=== PATIENT | male | born 1970 | race Caucasian/White ===

== ENCOUNTER 2016-08-28 11:35 | Inpatient (IN) | payer OTHER ==
[~2016-08-28] VITALS: Ht 172.7 cm; Wt 86.7 kg
[~2016-08-28 11:35] MED LIST: HYDR25TA4 PO; LISI10TA PO; MILK THISTLE 1000 MG PO; POTASSIUM GLUC PO
[2016-08-28] MEDS ORDERED: SODIUM CHLORIDE 0.9% 1000ML 1,000 ML IV ONE (12:10)
[2016-08-28] MEDS ORDERED: SODIUM CHLORIDE 0.9% 1000ML 1,000 ML IV STA (12:10)
[2016-08-28] MEDS ORDERED: OPTIRAY 320 IV PRN (12:30)
[2016-08-28 12:35] LABS: ISTAT IONIZED CALCIUM 1.19 mmol/l (1.12-1.32)
[2016-08-28 12:38] LABS: BASO % 0.2 %; BASO ABS # 0.02 K/uL (0-0.2); COMPLETE YES; EOS % 0.8 %; HEMATOCRIT 47.4 % (42-52); IG% 0.3 %; LYMPH % 20.9 %; LYMPH ABS # 2.58 K/uL (1.2-3.4); MEAN CORPUSCULAR HEMOGLOBIN 35.3 pg (25-34); MEAN CORPUSCULAR HGB CONC 35.7 g/dl (32-36); MEAN PLATELET VOLUME 8.6 fL (7.4-10.4); MONO % 8.7 %; NEUT % 69.1 %; PLATELET COUNT 195 K/uL (130-400); RED BLOOD COUNT 4.79 M/uL (4.7-6.1); WHITE BLOOD COUNT 12.36 K/uL (4.8-10.8)
--- NOTE | 2016-08-28 12:51 | DIAGNOSTIC IMAGING REPORT ---
ABDOMEN AND PELVIS CT WITH IV CONTRAST CT DOSE: 960.50 mGycm HISTORY: Hernia. Pain. eval for hernia TECHNIQUE: Multiaxial CT images of the abdomen and pelvis were performed following the use of intravenous contrast. COMPARISON STUDY: None. FINDINGS: Lung bases are clear. Liver spleen and pancreas are unremarkable. Kidneys negative for hydronephrosis. There is a 3.5 cm mid pole right renal cyst. Perinephric spaces are intact. The adrenal glands are within normal limits. There are findings of scattered colonic diverticulosis. The appendix is normal. There is no evidence for acute diverticulitis. There is a fat-containing right inguinal hernia. Mild infiltrative changes of the associated end of surrounding fat. This raises the possibility of a component of mild fat and associated necrosis. There is no evidence of bowel containment. Appears be a small right-sided hydrocele. The anterior abdominal wall appears to be intact. IMPRESSION: 1. Fat-containing right inguinal hernia with a small associated focus of fat necrosis and/or surrounding inflammatory change. 2. Small right associated scrotal hydrocele. 3. No evidence for bowel containment. 4. Scattered colonic diverticulosis with no evidence for diverticulitis. 5. 3.5 cm right renal cyst. 6. Normal appendix Electronically signed by: Tacho Ordoñez M.D. 08/28/2016 12:50 PM Dictated Date/Time: 08/28/2016 12:43 PM
[2016-08-28 12:53] LABS: BUN/CREATININE RATIO 13.5 (10-20); CALCIUM 9.4 mg/dl (8.5-10.1); CREATININE 1.1 mg/dl (0.60-1.40); POTASSIUM 4.1 mmol/L (3.5-5.1)
--- NOTE | 2016-08-28 13:28 | EMERGENCY ROOM VISIT NOTE ---
History Report prepared by Gómezibangelita: Todd Carbajal Under the Supervision of: Dr. David Hess M.D. First contact with patient: 12:01 Chief Complaint: GROIN PAIN Stated Complaint: HERNIA/BELLY OR GROIN History of Present Illness The patient is a 45 year old male who presents to the Emergency Room with complaints of constant right groin pain starting 2 days ago. He has worsening pain with squatting and kneeling. He denies any worsening pain with coughing. He applied ice without relief. He denies any recent injuries, straining, or lifting. He denies any headache, chest pain, back pain, burning with urination, blood in urine, numbness, weakness, or any other complaints. Source of History: patient Onset: 2 days ago Position: other (right groin) Timing: constant Modifying Factors (Worsening): other (squatting and kneeling) Modifying Factors (Relieving): ice (without relief) Associated Symptoms: No back pain, No chest pain, No headache, No numbness, No weakness Review of Systems See HPI for pertinent positives & negatives. A total of 10 systems reviewed and were otherwise negative. Past Medical & Surgical Medical Problems: (1) NUGENT (dyspnea on exertion) (2) Hypertension (3) Rotator cuff injury Old medical records were reviewed. Nurse's notes were reviewed and I agree with. Family History Diabetes mellitus FHx: cancer Hypertension Social History Smoking Status: Current Every Day Smoker Marital Status: single Housing Status: lives alone Occupation Status: employed Current/Historical Medications Scheduled Hydrochlorothiazide (Hctz), 25 MG PO DAILY Lisinopril (Prinivil), 10 MG PO DAILY Allergies Coded Allergies: No Known Allergies (Unverified , 08/28/16) Physical Exam Vital Signs Date Time Temp Pulse Resp B/P Pulse Ox O2 Delivery O2 Flow Rate FiO2 08/28/16 17:33 63 18 146/91 97 Room Air 08/28/16 16:04 72 18 145/97 97 Room Air 08/28/16 13:36 78 20 147/93 100 08/28/16 11:51 37.4 88 16 158/104 99 Room Air Physical Exam General: Non-ill appearing, middle aged male, in no acute distress. HEENT: Normal cephalic atraumatic. Pupils are equal round and reactive to light. Extraocular movements are intact. Oropharynx is pink with moist mucous membranes. No swelling of the mouth lips or tongue. Neck: Supple with a midline trachea. No meningeal signs or stiffness, no JVD or bruits. No Stridor. Chest: Clear to auscultation bilaterally. No wheezes or rhonchi. No increased work of breathing. Heart: regular rate and rhythm. Abdomen: Soft nontender, nondistended without rebound guarding or rigidity. : Mild to moderate swelling in the right inguinal area extending into the groin, mild tenderness, no warmth or redness. Extremities: No cyanosis clubbing or edema. No calf tenderness or assymetry Spine/Back. Non tender to palpation. No CVA tenderness Skin: Good turgor without rashes. Neurologic exam: Cranial nerves two through 12 are intact. Motor and sensation are intact and symmetrical throughout. Medical Decision & Procedures ER Provider Diagnostic Interpretation: CT results as stated below per my review and radiologist interpretation: ABDOMEN AND PELVIS CT WITH IV CONTRAST CT DOSE: 960.50 mGycm HISTORY: Hernia. Pain. eval for hernia TECHNIQUE: Multiaxial CT images of the abdomen and pelvis were performed following the use of intravenous contrast. COMPARISON STUDY: None. FINDINGS: Lung bases are clear. Liver spleen and pancreas are unremarkable. Kidneys negative for hydronephrosis. There is a 3.5 cm mid pole right renal cyst. Perinephric spaces are intact. The adrenal glands are within normal limits. There are findings of scattered colonic diverticulosis. The appendix is normal. There is no evidence for acute diverticulitis. There is a fat-containing right inguinal hernia. Mild infiltrative changes of the associated end of surrounding fat. This raises the possibility of a component of mild fat and associated necrosis. There is no evidence of bowel containment. Appears be a small right-sided hydrocele. The anterior abdominal wall appears to be intact. IMPRESSION: 1. Fat-containing right inguinal hernia with a small associated focus of fat necrosis and/or surrounding inflammatory change. 2. Small right associated scrotal hydrocele. 3. No evidence for bowel containment. 4. Scattered colonic diverticulosis with no evidence for diverticulitis. 5. 3.5 cm right renal cyst. 6. Normal appendix Electronically signed by: Tacho Ordoñez M.D. 08/28/2016 12:50 PM Dictated Date/Time: 08/28/2016 12:43 PM Laboratory Results 08/28/16 12:15 Red Blood Count 4.79, Mean Corpuscular Volume 99.0, Mean Corpuscular Hemoglobin 35.3, Mean Corpuscular Hemoglobin Concent 35.7, Mean Platelet Volume 8.6, Neutrophils (%) (Auto) 69.1, Lymphocytes (%) (Auto) 20.9, Monocytes (%) (Auto) 8.7, Eosinophils (%) (Auto) 0.8, Basophils (%) (Auto) 0.2, Neutrophils # (Auto) 8.55, Lymphocytes # (Auto) 2.58, Monocytes # (Auto) 1.07, Eosinophils # (Auto) 0.10, Basophils # (Auto) 0.02 08/28/16 12:15 Test 08/28/16 12:15 08/28/16 12:24 08/28/16 13:30 White Blood Count 12.36 K/uL (4.8-10.8) Red Blood Count 4.79 M/uL (4.7-6.1) Hemoglobin 16.9 g/dL (14.0-18.0) Hematocrit 47.4 % (42-52) Mean Corpuscular Volume 99.0 fL (80-100) Mean Corpuscular Hemoglobin 35.3 pg (25-34) Mean Corpuscular Hemoglobin Concent 35.7 g/dl (32-36) Platelet Count 195 K/uL (130-400) Mean Platelet Volume 8.6 fL (7.4-10.4) Neutrophils (%) (Auto) 69.1 % Lymphocytes (%) (Auto) 20.9 % Monocytes (%) (Auto) 8.7 % Eosinophils (%) (Auto) 0.8 % Basophils (%) (Auto) 0.2 % Neutrophils # (Auto) 8.55 K/uL (1.4-6.5) Lymphocytes # (Auto) 2.58 K/uL (1.2-3.4) Monocytes # (Auto) 1.07 K/uL (0.11-0.59) Eosinophils # (Auto) 0.10 K/uL (0-0.5) Basophils # (Auto) 0.02 K/uL (0-0.2) RDW Standard Deviation 44.6 fL (36.4-46.3) RDW Coefficient of Variation 12.4 % (11.5-14.5) Immature Granulocyte % (Auto) 0.3 % Immature Granulocyte # (Auto) 0.04 K/uL (0.00-0.02) Est Creatinine Clear Calc Drug Dose 90.5 ml/min Estimated GFR () 92.2 Estimated GFR (Non- 79.5 BUN/Creatinine Ratio 13.5 (10-20) Calcium Level 9.4 mg/dl (8.5-10.1) Total Bilirubin 1.0 mg/dl (0.2-1) Direct Bilirubin 0.1 mg/dl (0-0.2) Aspartate Amino Transf (AST/SGOT) 19 U/L (15-37) Alanine Aminotransferase (ALT/SGPT) 37 U/L (12-78) Alkaline Phosphatase 99 U/L (45-117) Total Creatine Kinase 153 U/L (39-308) Creatine Kinase MB 1.9 ng/ml (0.5-3.6) Creatine Kinase MB Ratio 1.2 (0-3.0) Troponin I < 0.015 ng/ml (0-0.045) Total Protein 8.0 gm/dl (6.4-8.2) Albumin 4.2 gm/dl (3.4-5.0) Lipase 140 U/L (73-393) Bedside Hemoglobin 17.0 g/dl (14.0-18.0) Bedside Hematocrit 50 % (42-52) Bedside Sodium 141 mEq/L (135-144) Bedside Potassium 4.2 mEq/L (3.3-5.0) Bedside Chloride 105 mEq/L (101-112) Bedside Total CO2 23 mEq/l (24-31) Anion Gap 18.0 mmol/L (16-25) Bedside Blood Urea Nitrogen 15 mg/dl (7-18) Bedside Creatinine 1.0 mg/dl (0.6-1.3) Bedside Glucose (other) 94 mg/dl (70-99) Bedside Ionized Calcium (Harry) 1.19 mmol/l (1.12-1.32) Urine Color YELLOW Urine Appearance CLEAR (CLEAR) Urine pH 5.0 (4.5-7.5) Urine Specific [place] > 1.045 (1.000-1.030) Urine Protein NEG (NEG) Urine Glucose (UA) NEG (NEG) Urine Ketones NEG (NEG) Urine Occult Blood NEG (NEG) Urine Nitrite NEG (NEG) Urine Bilirubin NEG (NEG) Urine Urobilinogen NEG (NEG) Urine Leukocyte Esterase NEG (NEG) Laboratory studies as stated above per my review. Medications Administered Medications (Trade) Dose Ordered Sig/Osvaldo Route Start Time Stop Time Status Last Admin Dose Admin Sodium Chloride 1,000 ml @ 999 mls/hr Q1H1M STAT IV 08/28/16 12:10 08/28/16 13:10 DC 08/28/16 12:20 999 MLS/HR Sodium Chloride (Nss 1000ml) 1,000 ml @ 200 mls/hr Q5H ONCE IV 08/28/16 12:10 08/28/16 17:09 DC 08/28/16 13:34 200 MLS/HR ED Course 1201: Past medical records reviewed. The patient was evaluated in room C08, and a complete history and physical examination were performed. 1210: Sodium Chloride 1000 ml @ 200 mls/hr IV, Sodium Chloride 1000 ml @ 999 mls /hr IV 1313: I discussed the patient's case with Dr. Esqueda, general surgeon with [facility]. 1321: I reevaluated the patient who is resting comfortably. 1408: Dr. Esqueda is currently evaluating the patient in the Emergency Room. 1434: Dr. Esqueda consulted with Dr. Caraballo about further evaluating the patient. Upon reevaluation, the patient is doing well. I discussed the results and treatment plan with the patient. He verbalized agreement of the treatment plan. The patient will be evaluated for further management. Medical Decision Differential diagnosis includes but is not limited to hernia, infection, obstruction, UTI, kidney stone, testicular problem. This patient comes in as described above. He was placed in room C8. He's having right groin pain and swelling. On exam, he does have a moderate size mass in that area is not red or warm is mildly tender. He is afebrile. IV access established blood work was obtained. His white count was mildly elevated. He has no significant electrolyte or metabolic abnormalities. CAT scan shows a fat-containing right hernia with some fat necrosis. I did consult surgery to see the patient in the emergency department for recommendations on further treatment and management. The patient was seen by Dr. Esqueda who feels he does have a fat-containing hernia. He further question the patient and the patient has had some shortness of breath with exertion occasional chest pain over the last year and he felt that he needed medical evaluation for surgery. The patient denies to me that he's been having acute problems lately with this. Dr. Bhatia did see the patient and is going to admit the patient for cardiac workup prior to his hernia surgery. Consults Time Called: 1310 Consulting Physician: Dr. Esqueda, general surgeon with [facility] Returned Call: [phone] I discussed the patient's case with Dr. Esqueda, general surgeon with [facility]. Impression Primary Impression: Right inguinal hernia Scribe Attestation The scribe's documentation has been prepared under my direction and personally reviewed by me in its entirety. I confirm that the note above accurately reflects all work, treatment, procedures, and medical decision making performed by me. Departure Information Dispostion Being Evaluated By Hospitalist Referrals No Doctor, Assigned (PCP) Patient Instructions [facility]
[2016-08-28 14:12] LABS: URINE APPEARANCE CLEAR (CLEAR); URINE BILIRUBIN NEG (NEG); URINE COLOR YELLOW; URINE NITRITE NEG (NEG); URINE SPECIFIC GRAVITY > 1.045 (1.000-1.030); UROBILINOGEN NEG (NEG)
[2016-08-28 14:13] LABS: MANUAL MICROSCOPIC REQUIRED? NO; REVIEW REQ? NO
[2016-08-28] MEDS ORDERED: ZOLPIDEM TARTRATE 5 MG TAB PO PRN (14:45)
--- NOTE | 2016-08-28 15:10 | DIAGNOSTIC IMAGING REPORT ---
CHEST ONE VIEW PORTABLE CLINICAL HISTORY: PRE-OP COMPARISON STUDY: Preoperative evaluation FINDINGS: The bones soft tissues and hemidiaphragms are normal. The cardiomediastinal silhouette is normal. The lungs are clear. The pulmonary vasculature is normal. Several old right-sided rib fractures. IMPRESSION: Negative chest. Electronically signed by: Tacho Ordoñez M.D. 08/28/2016 3:09 PM Dictated Date/Time: 08/28/2016 3:08 PM
--- NOTE | 2016-08-28 15:29 | SURGICAL CONSULTATION ---
DATE OF CONSULTATION: 08/28/2016 HISTORY OF PRESENT ILLNESS: I have been asked by Dr. Hess to see this 45-year-old male who presented to the Emergency Room with a complaint of pain on the right side of the scrotum. He stated that the pain began 2 days ago. He has never had pain there before. He has never known that he had a hernia on that side before. The pain is localized to the scrotum. There is no generalized abdominal pain. He has not had any nausea or vomiting. There has been no fever or chills. He thinks that he may have had a change in his bowel habits over the last 2 days, but prior to that they were formed and without constipation or diarrhea. He denies melena and hematochezia. He has no dysuria or hematuria. He has never had surgery in that lower portion of his abdomen in the past. In obtaining review of systems he does describe stress induced pressure-like chest pain in the center of his chest. He states that that has been occurring intermittently over the last year. He thinks that he had a stress test about 2-3 years ago what he said was normal, but he has not had a cardiac workup since the onset of these symptoms. He also has shortness of breath. He describes at times having shortness of breath just with speaking, but that seems to have abated. He does have shortness of breath with walking upstairs. PAST MEDICAL HISTORY: For hypertension and hypercholesterolemia, although he has not started a medicine for the hypercholesterolemia. PAST SURGICAL HISTORY: For rotator cuff surgery on the right. MEDICATIONS: Lisinopril and hydrochlorothiazide. ALLERGIES: None. SOCIAL HISTORY: He has smoked for 20 years, but he is presently down to less than 4 cigarettes a day. REVIEW OF SYSTEMS: As per HPI, otherwise negative. PHYSICAL EXAMINATION: VITAL SIGNS: Blood pressure 147/93, heart rate 78, respirations 20, temperature 37.4, pulse oximetry is 100% on room air. HEENT: Reveals sclerae to be anicteric. Mucous membranes are moist. NECK: Supple, with no adenopathy. BACK: Has no spinal or CVA tenderness. LUNGS: Clear. HEART: Regular. ABDOMEN: Has normoactive bowel sounds, is soft and nondistended. Examination of the inguinal area reveals a fullness in the upper portion of the scrotum extending up over the anterior surface of the pubic tubercle consistent with a right inguinal hernia. There was a mild tenderness of the testicle as well, but there was no mass. LABORATORY DATA: WBC 12.36, H\T\H is 16.9 and 47.4 with a platelet count of 195,000. Sodium 141, potassium 4.2, chloride 105, CO2 of 23, BUN 15, creatinine 1.0, glucose 94, total bilirubin 1.0, AST 19, ALT 37, alkaline phosphatase 99, lipase 140. CT scan of the abdomen and pelvis states fat containing right inguinal hernia with small associated focus of fat necrosis and/or surrounding inflammatory change and a small right associated hydrocele, but no evidence for bowel containment. He had a 3.5 cm renal cyst. ASSESSMENT AND PLAN: This patient has a right inguinal hernia containing fat but no bowel with no evidence of bowel obstruction. There is some fat necrosis. I feel that this hernia will need to be repaired; however, considering his chest pain and shortness of breath history and the fact that he was a smoker, I think that that needs to be investigated prior to repairing the hernia. There is no emergent need for hernia repair at the present time. I explained that to the patient. He is going to be admitted to the medicine service as I discussed with Dr. Caraballo. We will continue to follow him and schedule the hernia at an appropriate time. Thank you for allowing me to see this patient and participate in his care.
[2016-08-28 15:39] LABS: CKMB/CK RATIO 1.2 (0-3.0)
--- NOTE | 2016-08-28 17:36 | History and Physical ---
History & Physical Date & Time of Service: Aug 28, 2016 at 17:28 Chief Complaint: Hernia/Belly Or Groin Primary Care Physician: No Doctor, Assigned History of Present Illness Source: patient The patient is a 45-year-old male presents emergency department complaining of constant right groin pain, worse with squatting and kneeling, that began 2 days prior to arrival. He denies any the usual causative or associated factors. He also reports dyspnea on exertion that was initially assessed a few years ago, but has progressed since that time. He did have negative stress test 2 years ago. Past Medical/Surgical History Medical Problems: (1) Hypertension Status: Chronic Family History Diabetes mellitus FHx: cancer Hypertension Social History Smoking Status: Current Every Day Smoker Smokeless Tobacco Use: No Alcohol Use: none Marital Status: single Occupational Status: employed Immunizations History of Influenza Vaccine: No History of Tetanus Vaccine?: Yes Tetanus Immunization Date: Jul 29, 2005 History of Pneumococcal: No History of Hepatitis B Vaccine: Unknown Multi-Drug Resistant Organisms History of MDRO: No Allergies Coded Allergies: No Known Allergies (Unverified , 08/28/16) Home Medications Scheduled Hydrochlorothiazide (Hctz), 25 MG PO DAILY Lisinopril (Prinivil), 10 MG PO DAILY Review of Systems The patient denies chest pain, palpitations, cough, lower extremity swelling, vision change, hearing change, sore throat, fevers, chills, sweats, weight change, fatigue, nausea, vomiting, blood in urine or stool, dysuria, urinary frequency or urgency, lightheadedness, dizziness, headache, memory loss, rash, abnormal bruising or bleeding, imbalance, focal or generalized weakness, numbness or tingling in arms or legs, arthralgias or myalgias, back or neck pain , night sweats, or allergy symptoms. The review of systems is otherwise negative other than for that already noted above, and at least 10 systems have been reviewed. Physical Exam Vital Signs Date Time Temp Pulse Resp B/P Pulse Ox O2 Delivery O2 Flow Rate FiO2 08/28/16 16:04 72 18 145/97 97 Room Air 08/28/16 13:36 78 20 147/93 100 08/28/16 11:51 37.4 88 16 158/104 99 Room Air The patient is awake, well-developed and adequately nourished, alert and oriented 3, normocephalic and atraumatic, lying in bed and in no acute distress. HEENT--PERRL, EOMI, mucous membranes and oropharynx dry. Neck--supple, no JVD or bruits, thyroid normal, trachea midline, no adenopathy. Heart--normal S1 and S2, no extra beats, no murmurs, rubs or gallops. Lungs--clear bilaterally with good air movement, no respiratory distress, no accessory muscle use. Abdomen--normal bowel sounds and soft, nondistended, tender right inguinal hernia, no organomegaly. Extremities--no cyanosis, clubbing or edema. There are good distal pulses b/l. Dermatologic--normal skin turgor, normal color, warm and dry, no abnormal lymph nodes, no rash. Neurologic--cranial nerves II through XII grossly intact, motor and sensory examination normal. Rheumatologic--normal range of motion, nontender, muscles and joints. Psychiatric--normal affect. Diagnostics Laboratory Results Results Past 24 Hours Test 08/28/16 12:15 08/28/16 12:24 08/28/16 13:30 Range/Units White Blood Count 12.36 4.8-10.8 K/uL Red Blood Count 4.79 4.7-6.1 M/uL Hemoglobin 16.9 14.0-18.0 g/dL Hematocrit 47.4 42-52 % Mean Corpuscular Volume 99.0 80-100 fL Mean Corpuscular Hemoglobin 35.3 25-34 pg Mean Corpuscular Hemoglobin Concent 35.7 32-36 g/dl Platelet Count 195 130-400 K/uL Mean Platelet Volume 8.6 7.4-10.4 fL Neutrophils (%) (Auto) 69.1 % Lymphocytes (%) (Auto) 20.9 % Monocytes (%) (Auto) 8.7 % Eosinophils (%) (Auto) 0.8 % Basophils (%) (Auto) 0.2 % Neutrophils # (Auto) 8.55 1.4-6.5 K/uL Lymphocytes # (Auto) 2.58 1.2-3.4 K/uL Monocytes # (Auto) 1.07 0.11-0.59 K/uL Eosinophils # (Auto) 0.10 0-0.5 K/uL Basophils # (Auto) 0.02 0-0.2 K/uL RDW Standard Deviation 44.6 36.4-46.3 fL RDW Coefficient of Variation 12.4 11.5-14.5 % Immature Granulocyte % (Auto) 0.3 % Immature Granulocyte # (Auto) 0.04 0.00-0.02 K/uL Sodium Level 140 136-145 mmol/L Potassium Level 4.1 3.5-5.1 mmol/L Chloride Level 107 98-107 mmol/L Carbon Dioxide Level 25 21-32 mmol/L Anion Gap 8.0 18.0 16-25 mmol/L Blood Urea Nitrogen 15 7-18 mg/dl Creatinine 1.10 0.60-1.40 mg/dl Est Creatinine Clear Calc Drug Dose 90.5 ml/min Estimated GFR () 92.2 Estimated GFR (Non- 79.5 BUN/Creatinine Ratio 13.5 10-20 Random Glucose 88 70-99 mg/dl Calcium Level 9.4 8.5-10.1 mg/dl Total Bilirubin 1.0 0.2-1 mg/dl Direct Bilirubin 0.1 0-0.2 mg/dl Aspartate Amino Transf (AST/SGOT) 19 15-37 U/L Alanine Aminotransferase (ALT/SGPT) 37 12-78 U/L Alkaline Phosphatase 99 45-117 U/L Total Creatine Kinase 153 39-308 U/L Creatine Kinase MB 1.9 0.5-3.6 ng/ml Creatine Kinase MB Ratio 1.2 0-3.0 Troponin I < 0.015 0-0.045 ng/ml Total Protein 8.0 6.4-8.2 gm/dl Albumin 4.2 3.4-5.0 gm/dl Lipase 140 73-393 U/L Bedside Hemoglobin 17.0 14.0-18.0 g/dl Bedside Hematocrit 50 42-52 % Bedside Sodium 141 135-144 mEq/L Bedside Potassium 4.2 3.3-5.0 mEq/L Bedside Chloride 105 101-112 mEq/L Bedside Total CO2 23 24-31 mEq/l Bedside Blood Urea Nitrogen 15 7-18 mg/dl Bedside Creatinine 1.0 0.6-1.3 mg/dl Bedside Glucose (other) 94 70-99 mg/dl Bedside Ionized Calcium (Harry) 1.19 1.12-1.32 mmol/l Urine Color YELLOW Urine Appearance CLEAR CLEAR Urine pH 5.0 4.5-7.5 Urine Specific [place] > 1.045 1.000-1.030 Urine Protein NEG NEG Urine Glucose (UA) NEG NEG Urine Ketones NEG NEG Urine Occult Blood NEG NEG Urine Nitrite NEG NEG Urine Bilirubin NEG NEG Urine Urobilinogen NEG NEG Urine Leukocyte Esterase NEG NEG Microbiology Results 08/28/16 Urine Culture, Received Pending Diagnostic Radiology Patient Name: ASHER LI JR Unit Number: [id number] Dictated: 08/28/161242 Transcribed: 08/28/161242 MS Printed Date/Time: [~ rep prt dt]/[~ rep prt tm] [~ rep ct labl] - [~ rep ct ivnm] [facility] Radiology Department [place] [id number] Dictated: 08/28/161242 Transcribed: 08/28/161242 MS Printed Date/Time: [~ rep prt dt]/[~ rep prt tm] [~ rep ct labl] - [~ rep ct ivnm] ABDOMEN AND PELVIS CT WITH IV CONTRAST CT DOSE: 960.50 mGycm HISTORY: Hernia. Pain. eval for hernia TECHNIQUE: Multiaxial CT images of the abdomen and pelvis were performed following the use of intravenous contrast. COMPARISON STUDY: None. FINDINGS: Lung bases are clear. Liver spleen and pancreas are unremarkable. Kidneys negative for hydronephrosis. There is a 3.5 cm mid pole right renal cyst. Perinephric spaces are intact. The adrenal glands are within normal limits. There are findings of scattered colonic diverticulosis. The appendix is normal. There is no evidence for acute diverticulitis. There is a fat-containing right inguinal hernia. Mild infiltrative changes of the associated end of surrounding fat. This raises the possibility of a component of mild fat and associated necrosis. There is no evidence of bowel containment. Appears be a small right-sided hydrocele. The anterior abdominal wall appears to be intact. IMPRESSION: 1. Fat-containing right inguinal hernia with a small associated focus of fat necrosis and/or surrounding inflammatory change. 2. Small right associated scrotal hydrocele. 3. No evidence for bowel containment. 4. Scattered colonic diverticulosis with no evidence for diverticulitis. 5. 3.5 cm right renal cyst. 6. Normal appendix Electronically signed by: Tacho Ordoñez M.D. 08/28/2016 12:50 PM Dictated Date/Time: 08/28/2016 12:43 PM The status of this report is Signed. Draft = Not yet reviewed or approved by Radiologist. Signed = Reviewed and approved by Radiologist. <AttendingPhy></AttendingPhy> <FamilyPhy>No Doctor, Assigned</FamilyPhy> < PrimaryPhy>No Doctor, Assigned</PrimaryPhy> <UnitNumber>[id number]</UnitNumber> <VisitNumber>[id number]</VisitNumber> <PatientName>EDEL LINANY STEARNS JR</ PatientName> <DateOfBirth>1970</DateOfBirth> <Location>[facility]</Location> < ServiceDate>08/28/16</ServiceDate> <MNE>ESINDI</MNE> <OrderingPhy>David Hess M.D.</OrderingPhy> <OrderingPhyMNE>f rep ord dr young</OrderingPhyMNE> < DictatingPhyMNE>f rep dict dr young</DictatingPhyMNE> <CCListMNE>f rep ct mne</ CCListMNE> <AdmittingPhyMNE>f pt admit dr young</AdmittingPhyMNE> <AttendingPhyMNE >f pt attend dr young</AttendingPhyMNE> <ConsultingPhyMNE>f pt consult dr young</ConsultingPhyMNE> <FamilyPhyMNE>f pt fam dr young</FamilyPhyMNE> <OtherPhyMNE>f pt other dr young</OtherPhyMNE> < PrimaryPhyMNE>f pt prim care dr young</PrimaryPhyMNE> <ReferringPhyMNE>f pt referring dr young</ReferringPhyMNE> Patient Name: EDEL LINANY STEARNS JR Unit Number: [id number] Dictated: 08/28/16 1508 Transcribed: 08/28/16 1508 MS Printed Date/Time: [~ rep prt dt]/[~ rep prt tm] [~ rep ct labl] - [~ rep ct ivnm] [facility] [place] [address] Dictated: 08/28/16 1508 Transcribed: 08/28/16 1508 MS Printed Date/Time: [~ rep prt dt]/[~ rep prt tm] [~ rep ct labl] - [~ rep ct ivnm] CHEST ONE VIEW PORTABLE CLINICAL HISTORY: PRE-OP COMPARISON STUDY: Preoperative evaluation FINDINGS: The bones soft tissues and hemidiaphragms are normal. The cardiomediastinal silhouette is normal. The lungs are clear. The pulmonary vasculature is normal. Several old right-sided rib fractures. IMPRESSION: Negative chest. Electronically signed by: Tacho Ordoñez M.D. 08/28/2016 3:09 PM Dictated Date/Time: 08/28/2016 3:08 PM The status of this report is Signed. Draft = Not yet reviewed or approved by Radiologist. Signed = Reviewed and approved by Radiologist. <AttendingPhy></AttendingPhy> <FamilyPhy>No Doctor, Assigned</FamilyPhy> < PrimaryPhy>No Doctor, Assigned</PrimaryPhy> <UnitNumber>[id number]</UnitNumber> <VisitNumber>[id number]</VisitNumber> <PatientName>ASHER LI JR</ PatientName> <DateOfBirth>1970</DateOfBirth> <Location>[facility]</Location> < ServiceDate>08/28/16</ServiceDate> <MNE>ESINDI</MNE> <OrderingPhy>Tc Caraballo M.D.</OrderingPhy> <OrderingPhyMNE>f rep ord dr young</OrderingPhyMNE> < DictatingPhyMNE>f rep dict dr young</DictatingPhyMNE> <CCListMNE>f rep ct mne</ CCListMNE> <AdmittingPhyMNE>f pt admit dr young</AdmittingPhyMNE> <AttendingPhyMNE >f pt attend dr young</AttendingPhyMNE> <ConsultingPhyMNE>f pt consult dr young</ConsultingPhyMNE> <FamilyPhyMNE>f pt fam dr young</FamilyPhyMNE> <OtherPhyMNE>f pt other dr young</OtherPhyMNE> < PrimaryPhyMNE>f pt prim care dr young</PrimaryPhyMNE> <ReferringPhyMNE>f pt referring dr young</ReferringPhyMNE> Impression Assessment and Plan Dyspnea on exertion--patient has a normal chest x-ray, EKG pending. He'll be admitted to telemetry unit, for serial cardiac enzymes, cardiac rhythm monitoring and a 2-D echocardiogram with Dopplers. Because of his symptomatology, we will consult cardiology for stress testing prior to surgery. He does have history of tobacco use, and will have available DuoNeb's use every 2 hours when necessary. He masses an undiagnosed asthmatic condition. Right inguinal hernia--is been assessed by Dr. Tacho Esqueda from surgery, who will be consulted see the patient. The patient will need a cardiac workup prior to being acceptable for surgery. Hypertension--hold lisinopril 10 mg by mouth daily and HCTZ 25 mg by mouth daily. Tobacco use disorder--discussed the need for quitting. He reports he has been cutting down. Level of Care Telemetry Advanced Directives Existing Advance Directive: No Existing Living Will: No Existing Power of Handle Attacher: No Resuscitation Status FULL RESUSCITATION VTE Prophylaxis VTE Risk Assessment Done? Y/N: Yes Risk Level: Moderate Given or contraindicated: SCD's Social Service Consult None Apply
[2016-08-28 17:53] VITALS: BP 144/89; PULSE 68; TEMP 36.9; O2SAT 99; Ht 172.7 cm; Wt 86.7 kg
[2016-08-28] MEDS: NSS + 20MEQ KCL 1000ML 1,000 ML IV SCH (18:45)
[2016-08-28 19:27] VITALS: BP 168/95; PULSE 78; TEMP 36.8; O2SAT 98
[2016-08-28 20:00] VITALS: O2SAT 98
[2016-08-28 23:11] VITALS: BP 143/90; PULSE 61; TEMP 36.8; O2SAT 96
[2016-08-29] VITALS (9 sets, daily range): BP systolic 128–169; BP diastolic 78–101; PULSE 57–69; TEMP 36.5–37.1; O2SAT 96–98
[2016-08-29] MEDS: NSS + 20MEQ KCL 1000ML 1,000 ML IV SCH ×3 (04:14→23:48)
[2016-08-29] MEDS: ACETAMINOPHEN 325 MG TAB PO PRN ×2 (04:19→23:22)
--- NOTE | 2016-08-29 07:57 | Hospitalist Progress Note ---
Hospitalist Progress Note Date of Service Aug 29, 2016. (Maddy Morley PA-C) Subjective Pt evaluation today including: conversation w/ patient, physical exam, chart review, lab review, review of studies, review of inpatient medication list Pain: Groin pain PO Intake: NPO Voiding: no voiding problems The patient was seen and examined this morning. Pt reports his breathing is normal today. He does not feel short of breath at rest or with exertion. He smokes ~ 2 cigarettes a day and this is cut down from 8 cigarettes about two years ago. He has never had formal PFTs done, [facility] [place] [facility]. In regards to groin pain, pt reports it is still present, and that the swelling in suprapubic region on the right side has remained the same. He denies nausea or vomiting. His scrotum is not swollen. Constitutional: No chills, No fever, No sweats Eyes: No diplopia ENT: No nasal symptoms, No sore throat Respiratory: No cough, No dyspnea on exertion, No shortness of breath, No wheezing Cardiovascular: No chest pain Abdomen: No constipation, No diarrhea, No nausea, No pain, No vomiting Musculoskeletal: No joint pain Male : No dysuria Skin: No itch, No rash (Maddy Morley PA-C) Objective Vital Signs Date Time Temp Pulse Resp B/P Pulse Ox O2 Delivery O2 Flow Rate FiO2 08/29/16 04:00 98 Room Air 08/29/16 03:01 36.5 57 19 131/78 98 Room Air 08/29/16 00:00 96 Room Air 08/28/16 23:11 36.8 61 18 143/90 96 Room Air 08/28/16 20:00 98 Room Air 08/28/16 19:27 36.8 78 16 168/95 98 Room Air 08/28/16 17:53 36.9 68 13 144/89 99 Room Air 08/28/16 17:33 63 18 146/91 97 Room Air 08/28/16 16:04 72 18 145/97 97 Room Air 08/28/16 13:36 78 20 147/93 100 08/28/16 11:51 37.4 88 16 158/104 99 Room Air (Maddy Morley PA-C) Physical Exam General Appearance: WD/WN, no apparent distress Eyes: PERRL, EOMI ENT: hearing grossly normal, pharynx normal Neck: supple, no JVD Respiratory/Chest: chest non-tender, lungs clear, normal breath sounds, no respiratory distress, no accessory muscle use Cardiovascular: regular rate, rhythm, no murmur Abdomen: normal bowel sounds, non tender, soft Extremities: non-tender, no pedal edema, no calf tenderness Neurologic/Psychiatric: alert, oriented x 3 Notes: Male : Right sided inguinal hernia, + edema right sided suprapubic region. No scrotal swelling. (Maddy Morley PA-C) Laboratory Results Last 24 Hours Test 08/28/16 12:15 08/28/16 12:24 08/28/16 13:30 White Blood Count 12.36 K/uL Red Blood Count 4.79 M/uL Hemoglobin 16.9 g/dL Hematocrit 47.4 % Mean Corpuscular Volume 99.0 fL Mean Corpuscular Hemoglobin 35.3 pg Mean Corpuscular Hemoglobin Concent 35.7 g/dl Platelet Count 195 K/uL Mean Platelet Volume 8.6 fL Neutrophils (%) (Auto) 69.1 % Lymphocytes (%) (Auto) 20.9 % Monocytes (%) (Auto) 8.7 % Eosinophils (%) (Auto) 0.8 % Basophils (%) (Auto) 0.2 % Neutrophils # (Auto) 8.55 K/uL Lymphocytes # (Auto) 2.58 K/uL Monocytes # (Auto) 1.07 K/uL Eosinophils # (Auto) 0.10 K/uL Basophils # (Auto) 0.02 K/uL RDW Standard Deviation 44.6 fL RDW Coefficient of Variation 12.4 % Immature Granulocyte % (Auto) 0.3 % Immature Granulocyte # (Auto) 0.04 K/uL Sodium Level 140 mmol/L Potassium Level 4.1 mmol/L Chloride Level 107 mmol/L Carbon Dioxide Level 25 mmol/L Anion Gap 8.0 mmol/L 18.0 mmol/L Blood Urea Nitrogen 15 mg/dl Creatinine 1.10 mg/dl Est Creatinine Clear Calc Drug Dose 90.5 ml/min Estimated GFR () 92.2 Estimated GFR (Non- 79.5 BUN/Creatinine Ratio 13.5 Random Glucose 88 mg/dl Calcium Level 9.4 mg/dl Total Bilirubin 1.0 mg/dl Direct Bilirubin 0.1 mg/dl Aspartate Amino Transf (AST/SGOT) 19 U/L Alanine Aminotransferase (ALT/SGPT) 37 U/L Alkaline Phosphatase 99 U/L Total Creatine Kinase 153 U/L Creatine Kinase MB 1.9 ng/ml Creatine Kinase MB Ratio 1.2 Troponin I < 0.015 ng/ml Total Protein 8.0 gm/dl Albumin 4.2 gm/dl Lipase 140 U/L Bedside Hemoglobin 17.0 g/dl Bedside Hematocrit 50 % Bedside Sodium 141 mEq/L Bedside Potassium 4.2 mEq/L Bedside Chloride 105 mEq/L Bedside Total CO2 23 mEq/l Bedside Blood Urea Nitrogen 15 mg/dl Bedside Creatinine 1.0 mg/dl Bedside Glucose (other) 94 mg/dl Bedside Ionized Calcium (Harry) 1.19 mmol/l Urine Color YELLOW Urine Appearance CLEAR Urine pH 5.0 Urine Specific [place] > 1.045 Urine Protein NEG Urine Glucose (UA) NEG Urine Ketones NEG Urine Occult Blood NEG Urine Nitrite NEG Urine Bilirubin NEG Urine Urobilinogen NEG Urine Leukocyte Esterase NEG (Maddy Morley PA-C) Assessment and Plan 45 yo M admitted for groin pain with PMHx of tobacco abuse disorder, shortness of breath. The patient required cardiac clearance prior to surgical intervention for right inguinal hernia. Right inguinal hernia - Surgery consulted: Dr. Tacho Esqueda from surgery- nonemergent surgery at this time- cleared by cardiology standpoint. Will await surg decision if will do surgery today or tomorrow. - Pt previously had stress test completed December 03, 2013 which was negative with 91 % MPHR and EKG, no valvular abnormalities, no exercise induced chest pain performed by Dr. Gates. - CT abd/pelvis 08/28/16: Impression: 1. Fat-containing right inguinal hernia with a small associated focus of fat necrosis and/or surrounding inflammatory change. 2. Small right associated scrotal hydrocele. 3. No evidence for bowel containment. 4. Scattered colonic diverticulosis with no evidence for diverticulitis. 5. 3.5 cm right renal cyst. 6. Normal appendix Shortness of breath Tobacco Abuse Disorder - Echo completed but not read yet, also follow report for dopplers - Trop trended and negative. - Pt reports shortness of breath seems to be related to anxiety. In stressful situations the patient feels chest tightness but reports it resolves in a short amount of time, he denies ever experiencing acute sharp pain, radiating pain, or pressure, no associated n/v. He has good functional status with exercise and active lifestyle. - Since 2013 when he was worked up for chest tightness with an exercise stress test he was asked to get formal PFTs. He switched to the [facility] for medical care, and this was never done. He decreased the amount of smoking at that time from 8- 9 cigs daily to now only 2 per day. - Will need formal PFTs scheduled as oupt - Smoking cessation encouraged - Duonebs available Hypertension--hold lisinopril 10 mg by mouth daily and HCTZ 25 mg by mouth daily. DVT ppx: SCDs, OOB. CODE STATUS: FULL CODE Disposition: From home, will need follow up with formal PFTs and 1 week f/u with provider at the [facility] at time of discharge. (Maddy Morley PA-C) Reviewed: Pt Seen/Exam by , RAYO Notes, Prior Records, Labs, RAD, EKG (Rosalie Art MD) History Pt feeling some pain in right groin but is ok while lying in bed. Reviewed his history and Cardiology consult, all labs and rads, ECGs, previous Stress ECHO. He reports CP that is dull and comes on at rest usually only under high stress periods that goes away on its own. He otherwise can exercise by walking 1-2 miles without any exertional CP. His NUGENT has been stable over the last 2 years as well and is only with heavy exercise. He does continue to smoke 2 ciggs/day and is trying to quit. Otherwise agree with PA HPI/ROS as above (Rosalie Art MD) All Other Systems: Reviewed and Negative (Rosalie Art MD) General Appearance: WD/WN, no apparent distress Eye Exam: bilateral eye normal inspection Ears, Nose, Throat: hearing grossly normal Neck: full range of motion, supple, normal inspection, trachea midline Respiratory: lungs clear, normal breath sounds, no respiratory distress, no accessory muscle use, respiratory distress Cardiovascular: regular rate, rhythm, no edema, no gallop, no JVD, no murmur, other (no carotid bruits) Gastrointestinal: normal bowel sounds, soft, no organomegaly, no pulsatile mass , hernia (large palpable right inguinal hernia that goes down into right hemiscrotuma nd is +TTP) Extremities: non-tender, normal inspection, no pedal edema, no calf tenderness Neurologic/Psychiatric: alert, normal mood/affect, oriented x 3 Skin Characteristics: normal color, warm/dry (Rosalie Art MD) Assessment/Plan Agree with PA A/P as above with the following exceptions/additions: RIH-with fat necrosis--> plan for RIH repair tomorrow with Dr. Esqueda. He is able to achieve at least 4 METS, has normal ECGs here, normal stress and resting ECHO 2013. His chest symptoms are atypical and could be related to GI issues or stress/anxiety. His NUGENT is most likely related to his smoking history. -recommend formal PFTs as above as outpt -Strongly encouraged smoking cessation -He is at average CV risk for this intermediate risk surgery and therefore should proceed with surgery as planned without further testing or intervention. -pain control -Surgical management by Surgery greatly appreciated -restart BP meds now -NPO after midnight for surgery tomorrow -expect d/c to home tomorrow after recovery if not too late in the day Proph-SCDs, no anticoagulants due to upcoming surgery (Rosalie Art MD)
--- NOTE | 2016-08-29 08:08 | Surgery Progress Note ---
Surgery Progress Note Date of Service Aug 29, 2016. Subjective No nausea, No vomiting Less pain in right inguinal area Objective Vital Signs: Date Time Temp Pulse Resp B/P Pulse Ox O2 Delivery O2 Flow Rate FiO2 08/29/16 07:48 Room Air 08/29/16 04:00 98 Room Air 08/29/16 03:01 36.5 57 19 131/78 98 Room Air 08/29/16 00:00 96 Room Air 08/28/16 23:11 36.8 61 18 143/90 96 Room Air 08/28/16 20:00 98 Room Air 08/28/16 19:27 36.8 78 16 168/95 98 Room Air 08/28/16 17:53 36.9 68 13 144/89 99 Room Air 08/28/16 17:33 63 18 146/91 97 Room Air 08/28/16 16:04 72 18 145/97 97 Room Air 08/28/16 13:36 78 20 147/93 100 08/28/16 11:51 37.4 88 16 158/104 99 Room Air Abdomen: normal bowel sounds, non distended, soft, + pertinent finding (right inguinal hernia persists, ) Laboratory Results: Results Past 24 Hours Test 08/28/16 12:15 08/28/16 12:24 08/28/16 13:30 Range/Units White Blood Count 12.36 4.8-10.8 K/uL Red Blood Count 4.79 4.7-6.1 M/uL Hemoglobin 16.9 14.0-18.0 g/dL Hematocrit 47.4 42-52 % Mean Corpuscular Volume 99.0 80-100 fL Mean Corpuscular Hemoglobin 35.3 25-34 pg Mean Corpuscular Hemoglobin Concent 35.7 32-36 g/dl Platelet Count 195 130-400 K/uL Mean Platelet Volume 8.6 7.4-10.4 fL Neutrophils (%) (Auto) 69.1 % Lymphocytes (%) (Auto) 20.9 % Monocytes (%) (Auto) 8.7 % Eosinophils (%) (Auto) 0.8 % Basophils (%) (Auto) 0.2 % Neutrophils # (Auto) 8.55 1.4-6.5 K/uL Lymphocytes # (Auto) 2.58 1.2-3.4 K/uL Monocytes # (Auto) 1.07 0.11-0.59 K/uL Eosinophils # (Auto) 0.10 0-0.5 K/uL Basophils # (Auto) 0.02 0-0.2 K/uL RDW Standard Deviation 44.6 36.4-46.3 fL RDW Coefficient of Variation 12.4 11.5-14.5 % Immature Granulocyte % (Auto) 0.3 % Immature Granulocyte # (Auto) 0.04 0.00-0.02 K/uL Sodium Level 140 136-145 mmol/L Potassium Level 4.1 3.5-5.1 mmol/L Chloride Level 107 98-107 mmol/L Carbon Dioxide Level 25 21-32 mmol/L Anion Gap 8.0 18.0 16-25 mmol/L Blood Urea Nitrogen 15 7-18 mg/dl Creatinine 1.10 0.60-1.40 mg/dl Est Creatinine Clear Calc Drug Dose 90.5 ml/min Estimated GFR () 92.2 Estimated GFR (Non- 79.5 BUN/Creatinine Ratio 13.5 10-20 Random Glucose 88 70-99 mg/dl Calcium Level 9.4 8.5-10.1 mg/dl Total Bilirubin 1.0 0.2-1 mg/dl Direct Bilirubin 0.1 0-0.2 mg/dl Aspartate Amino Transf (AST/SGOT) 19 15-37 U/L Alanine Aminotransferase (ALT/SGPT) 37 12-78 U/L Alkaline Phosphatase 99 45-117 U/L Total Creatine Kinase 153 39-308 U/L Creatine Kinase MB 1.9 0.5-3.6 ng/ml Creatine Kinase MB Ratio 1.2 0-3.0 Troponin I < 0.015 0-0.045 ng/ml Total Protein 8.0 6.4-8.2 gm/dl Albumin 4.2 3.4-5.0 gm/dl Lipase 140 73-393 U/L Bedside Hemoglobin 17.0 14.0-18.0 g/dl Bedside Hematocrit 50 42-52 % Bedside Sodium 141 135-144 mEq/L Bedside Potassium 4.2 3.3-5.0 mEq/L Bedside Chloride 105 101-112 mEq/L Bedside Total CO2 23 24-31 mEq/l Bedside Blood Urea Nitrogen 15 7-18 mg/dl Bedside Creatinine 1.0 0.6-1.3 mg/dl Bedside Glucose (other) 94 70-99 mg/dl Bedside Ionized Calcium (Harry) 1.19 1.12-1.32 mmol/l Urine Color YELLOW Urine Appearance CLEAR CLEAR Urine pH 5.0 4.5-7.5 Urine Specific [place] > 1.045 1.000-1.030 Urine Protein NEG NEG Urine Glucose (UA) NEG NEG Urine Ketones NEG NEG Urine Occult Blood NEG NEG Urine Nitrite NEG NEG Urine Bilirubin NEG NEG Urine Urobilinogen NEG NEG Urine Leukocyte Esterase NEG NEG Microbiology Results 08/28/16 Urine Culture, Received Pending Assessment & Plan Right inguinal hernia Will need repair at some point Undergoing cardiac evaluation first
--- NOTE | 2016-08-29 09:59 | Cardiology Consultation ---
Cardiology Consultation Date of Consultation: Aug 29, 2016. Requesting Physician: Dr. Caraballo Attending Physician: Dr. Summers Reason for Consultation: Pre-operative cardiovascular evaluation Pt evaluation today including: conversation w/ patient, conversation w/ family , physical exam, chart review, lab review, review of studies, review of inpatient medication list, conversation w/ attending History of Present Illness Mr. Tim is a 45-year-old male with a past medical history significant for hypertension, dyslipidemia, and tobacco abuse who presented to the ED yesterday with complaints of right groin pain which started 2 days prior. He was found to have right inguinal hernia containing fat, and he will be undergoing hernia repair in the near future. Patient seen at bedside this morning. His accompanies him in the room. 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 He reports about a 2 year history of intermittent, dull/aching substernal chest discomfort, which is non-radiating. The discomfort occurs during times of high stress at work and lasts about 1 hour before self- resolving. He has no associated symptoms of shortness of breath, nausea, vomiting, or diaphoresis. He reports that he cuts firewood over the winter months and has been out shoveling snow. Recently, he has been walking 1-2 miles about once a week. He notes that he ambulates up and down stairs on a regular basis. He denies any chest discomfort or other anginal type symptoms with these activities. He does not dyspnea when ambulating up 2 flights of stairs or more. This has been stable in nature over the last 1-2 years. He denies shortness of breath at rest, orthopnea, PND, edema, palpitations, lightheadedness, dizziness , syncope, presyncope, abnormal bleeding, claudication symptoms, or cerebrovascular symptoms. Review of Systems: As noted in HPI. All other ROS otherwise negative. Past Medical/Surgical History S/P right rotator cuff repair in 2013 Family History Diabetes mellitus FHx: cancer Hypertension No family history of premature CAD. Social History Smoking Status: Current Every Day Smoker History of Alcohol Use: Yes He is and has 2 children. 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 He currently smokes 1-2 cigarettes daily. He has been smoking for 20 years at up to 1/2 ppd. He drinks 12-24 alcoholic beverages per week. He denies recreational drug use. Allergies Coded Allergies: No Known Allergies (Unverified , 08/28/16) Medications Current Inpatient Medications Medications (Trade) Dose Ordered Sig/Osvaldo Route Start Time Stop Time Status Last Admin Dose Admin Ioversol 125 ml 125 ml UD PRN IV 08/28/16 12:30 09/01/16 12:29 Potassium Chloride/Sodium Chloride (Nss + 20meq KCl 1000ml) 1,000 ml @ 100 mls/hr Q10H IV 08/28/16 18:20 09/27/16 18:19 08/29/16 04:14 100 MLS/HR Acetaminophen (Tylenol Tab) 650 mg Q4H PRN PO 08/28/16 14:45 09/27/16 14:44 08/29/16 04:19 650 MG Zolpidem Tartrate (Ambien Tab) 5 mg HSZ PRN PO 08/28/16 14:45 09/27/16 14:44 Physical Exam Vital Signs Past 12 Hours Date Time Temp Pulse Resp B/P Pulse Ox O2 Delivery O2 Flow Rate FiO2 08/29/16 07:48 Room Air 08/29/16 04:00 98 Room Air 08/29/16 03:01 36.5 57 19 131/78 98 Room Air 08/29/16 00:00 96 Room Air 08/28/16 23:11 36.8 61 18 143/90 96 Room Air Constitutional: Alert, oriented, in no acute distress HEENT: Head is atraumatic and normocephalic. EOMs intact. Sclera anicteric. Face is symmetric. No perioral cyanosis. Mucous membranes moist. Neck: Supple, no JVD, no carotid bruits Pulmonary: Normal respiratory effort, clear to auscultation bilaterally Cardiac: Regular rate and rhythm, normal S1 and S2, no gallops, no rubs, no murmurs Extremities: No clubbing, cyanosis, or edema. Pulses 2+ and symmetric Abdomen: Normal bowel sounds, soft, non-tender, no abdominal mass palpated Skin: Normal skin color, turgor, and pigmentation, no rash, no skin lesions Neurological: Oriented to person, place, and time Data Laboratory Results: Last 24 Hours Test 08/28/16 12:15 08/28/16 12:24 08/28/16 13:30 White Blood Count 12.36 K/uL Red Blood Count 4.79 M/uL Hemoglobin 16.9 g/dL Hematocrit 47.4 % Mean Corpuscular Volume 99.0 fL Mean Corpuscular Hemoglobin 35.3 pg Mean Corpuscular Hemoglobin Concent 35.7 g/dl Platelet Count 195 K/uL Mean Platelet Volume 8.6 fL Neutrophils (%) (Auto) 69.1 % Lymphocytes (%) (Auto) 20.9 % Monocytes (%) (Auto) 8.7 % Eosinophils (%) (Auto) 0.8 % Basophils (%) (Auto) 0.2 % Neutrophils # (Auto) 8.55 K/uL Lymphocytes # (Auto) 2.58 K/uL Monocytes # (Auto) 1.07 K/uL Eosinophils # (Auto) 0.10 K/uL Basophils # (Auto) 0.02 K/uL RDW Standard Deviation 44.6 fL RDW Coefficient of Variation 12.4 % Immature Granulocyte % (Auto) 0.3 % Immature Granulocyte # (Auto) 0.04 K/uL Sodium Level 140 mmol/L Potassium Level 4.1 mmol/L Chloride Level 107 mmol/L Carbon Dioxide Level 25 mmol/L Anion Gap 8.0 mmol/L 18.0 mmol/L Blood Urea Nitrogen 15 mg/dl Creatinine 1.10 mg/dl Est Creatinine Clear Calc Drug Dose 90.5 ml/min Estimated GFR () 92.2 Estimated GFR (Non- 79.5 BUN/Creatinine Ratio 13.5 Random Glucose 88 mg/dl Calcium Level 9.4 mg/dl Total Bilirubin 1.0 mg/dl Direct Bilirubin 0.1 mg/dl Aspartate Amino Transf (AST/SGOT) 19 U/L Alanine Aminotransferase (ALT/SGPT) 37 U/L Alkaline Phosphatase 99 U/L Total Creatine Kinase 153 U/L Creatine Kinase MB 1.9 ng/ml Creatine Kinase MB Ratio 1.2 Troponin I < 0.015 ng/ml Total Protein 8.0 gm/dl Albumin 4.2 gm/dl Lipase 140 U/L Bedside Hemoglobin 17.0 g/dl Bedside Hematocrit 50 % Bedside Sodium 141 mEq/L Bedside Potassium 4.2 mEq/L Bedside Chloride 105 mEq/L Bedside Total CO2 23 mEq/l Bedside Blood Urea Nitrogen 15 mg/dl Bedside Creatinine 1.0 mg/dl Bedside Glucose (other) 94 mg/dl Bedside Ionized Calcium (Harry) 1.19 mmol/l Urine Color YELLOW Urine Appearance CLEAR Urine pH 5.0 Urine Specific [place] > 1.045 Urine Protein NEG Urine Glucose (UA) NEG Urine Ketones NEG Urine Occult Blood NEG Urine Nitrite NEG Urine Bilirubin NEG Urine Urobilinogen NEG Urine Leukocyte Esterase NEG CXR: negative chest EKG 08/28/16: Normal sinus rhythm at 71 bpm. Normal EKG. EKG 08/29/16: Sinus bradycardia at 56 bpm. Otherwise normal EKG. Telemetry reviewed: Sinus rhythm with an average rate in the 70's Stress echo 12/03/13: Negative for myocardial ischemia at 91% MPHR and 12.8 METS. Resting echo with normal LV size, wall thickness, and systolic function, EF 60%. No regional wall motion abnormalities. Mildly dilated RV with normal systolic function. No significant valvular abnormalities. Assessment & Plan Patient is a 45-year-old male with a history of hypertension, dyslipidemia, and tobacco abuse who is to undergo right inguinal hernia repair in the near future. He is currently stable and asymptomatic from a cardiovascular standpoint. He denies anginal symptoms at an excellent functional status. His intermittent chest discomfort is consistent with non-cardiac pain as it only occurs during times of high emotional stress. His exertional dyspnea has been stable in nature over the last 1-2 years. He has no evidence of heart failure, concerning arrhythmias, or significant valvular heart disease. A stress echocardiogram performed in November 2013 was negative for myocardial ischemia at 91 % MPHR and 12.8 METS. Resting echo at that time demonstrated normal systolic function with no significant valvular abnormalities. EKG during this admission showed normal sinus rhythm with no acute ST T wave abnormality. Given the above information, the patient is at an acceptable risk to proceed with low risk surgery without any additional cardiovascular testing or intervention. Thank you for allowing us to see this patient in consultation. Patient discussed with Dr. Summers, and the plan was made in collaboration with him.
[2016-08-29] MEDS ORDERED: LISINOPRIL 10 MG TAB PO ONE (14:40)
[2016-08-29] MEDS ORDERED: HYDROCHLOROTHIAZIDE 25 MG TAB PO ONE (14:40)
--- NOTE | 2016-08-29 15:30 | ECHOCARDIOGRAM REPORT ---
*NOTICE TO RECEIVING REPUBLICAN AGENCY This information is strictly Confidential and protected under [place] law. [place] law prohibits you from making any further disclosure of this information unless further disclosure is expressly permitted by the written consent of the person to whom it pertains or is authorized by law. A general authorization for the release of medical or other information is not sufficient for this purpose. Hospital accepts no responsibility if the information is made available to any other person, INCLUDING THE PATIENT. Interpretation Summary * Name: ASHER LI JR Study Date: 08/29/2016 09:03 AM BP: 131/78 mmHg * Patient Location: [facility] HR: 57 * : 1970 (M/d/yyyy) Gender: Male Height: 68 in * Age: 45 yrs Ethnicity: [place] Weight: 198 lb * Ordering Physician: Tc Caraballo * Performed By: Cristina Moya RDCS * * Reason For Study: Pre-op, dyspnea on exertion * BSA: 2.0 m2 * -- Conclusions -- * The left ventricle is normal in size. * There is normal left ventricular wall thickness. * Ejection Fraction = 60-65%. * Left ventricular systolic function is normal. * Flattened septum is consistent with RV volume overload. * The right ventricle is mildly dilated. * Trace pulmonic valvular regurgitation. * Pulmonary end diastolic Doppler velocity of 0.8 m/s is consistent with normal pulmonary artery end diastolic pressure. Procedure Details * A complete two-dimensional transthoracic echocardiogram was performed (2D, M-mode, Doppler and color flow Doppler). Left Ventricle * The left ventricle is normal in size. * There is normal left ventricular wall thickness. * Ejection Fraction = 60-65%. * Left ventricular systolic function is normal. * Flattened septum is consistent with RV volume overload. Right Ventricle * The right ventricle is mildly dilated. Atria * The left atrial size is normal. * Right atrial size is normal. * The interatrial septum is intact with no evidence for an atrial septal defect. Mitral Valve * The mitral valve is normal in structure and function. * There is no mitral regurgitation noted. Tricuspid Valve * The tricuspid valve is normal in structure and function. * Significant tricuspid regurgitation is absent. Aortic Valve * The aortic valve is trileaflet. * The aortic valve is normal in structure and function. * No hemodynamically significant valvular aortic stenosis. * No aortic regurgitation is present. Pulmonic Valve * The pulmonary valve is not well seen, but the Doppler examination is normal without significant regurgitation or stenosis. * Trace pulmonic valvular regurgitation. * Pulmonary end diastolic Doppler velocity of 0.8 m/s is consistent with normal pulmonary artery end diastolic pressure. Great Vessels * The aortic root is normal size. * No obvious dissection could be visualized. Pericardium/Pleural * There is no pericardial effusion. MMode 2D Measurements and Calculations IVSd 0.96 cm LVIDd 4.3 cm LVIDs 2.8 cm LVPWd 0.98 cm IVS/LVPW 0.98 FS 34.8 % EDV(Teich) 82.3 ml ESV(Teich) 29.4 ml EF(Teich) 64.3 % EDV(cubed) 78.6 ml ESV(cubed) 21.8 ml EF(cubed) 72.3 % LV mass(C)d 136.2 grams LV mass(C)dI 66.9 grams/m\S\2 CO(Teich) 3.3 l/min CI(Teich) 1.6 l/min/m\S\2 SV(Teich) 52.9 ml SI(Teich) 26.0 ml/m\S\2 CO(cubed) 3.6 l/min CI(cubed) 1.8 l/min/m\S\2 SV(cubed) 56.8 ml SI(cubed) 27.9 ml/m\S\2 Ao root diam 3.8 cm Ao root area 11.6 cm\S\2 ACS 1.9 cm LA dimension 3.2 cm asc Aorta Diam 2.9 cm LA/Ao 0.84 LVOT diam 2.0 cm LVOT area 3.1 cm\S\2 LVAd ap4 32.4 cm\S\2 LVLd ap4 8.9 cm EDV(MOD-sp4) 95.0 ml LVAs ap4 16.2 cm\S\2 LVLs ap4 6.8 cm ESV(MOD-sp4) 32.0 ml EF(MOD-sp4) 66.3 % LVAd ap2 32.0 cm\S\2 LVLd ap2 8.7 cm EDV(MOD-sp2) 95.0 ml LVAs ap2 16.2 cm\S\2 LVLs ap2 6.6 cm ESV(MOD-sp2) 33.0 ml EF(MOD-sp2) 65.3 % CO(MOD-sp4) 4.0 l/min CI(MOD-sp4) 2.0 l/min/m\S\2 SV(MOD-sp4) 63.0 ml SI(MOD-sp4) 31.0 ml/m\S\2 CO(MOD-sp2) 3.9 l/min CI(MOD-sp2) 1.9 l/min/m\S\2 SV(MOD-sp2) 62.0 ml SI(MOD-sp2) 30.5 ml/m\S\2 Doppler Measurements and Calculations MV E max damien 93.3 cm/sec MV A max damien 65.2 cm/sec MV E/A 1.4 MV dec time 0.20 sec Ao V2 max 149.4 cm/sec Ao max PG 8.9 mmHg Ao max PG (full) 5.4 mmHg MARKO(V,A) 1.9 cm\S\2 MARKO(V,D) 1.9 cm\S\2 LV V1 max PG 3.5 mmHg LV V1 max 93.8 cm/sec PA V2 max 107.2 cm/sec PA max PG 4.6 mmHg PA acc slope 392.5 cm/sec\S\2 PA acc time 0.14 sec PA pr(Accel) 15.6 mmHg
[2016-08-30] VITALS (14 sets, daily range): BP systolic 111–155; BP diastolic 70–88; PULSE 50–93; TEMP 36.7–37.6; O2SAT 92–100
[2016-08-30 06:06] LABS: BASO % 0.4 %; BASO ABS # 0.03 K/uL (0-0.2); COMPLETE YES; EOS % 1.6 %; HEMATOCRIT 43.8 % (42-52); IG% 0.4 %; LYMPH % 27.7 %; LYMPH ABS # 2.37 K/uL (1.2-3.4); MEAN CELL VOLUME 100.2 fL (80-100); MEAN CORPUSCULAR HEMOGLOBIN 34.1 pg (25-34); MEAN PLATELET VOLUME 8.6 fL (7.4-10.4); MONO % 12.1 %; NEUT % 57.8 %; PLATELET COUNT 178 K/uL (130-400); RED BLOOD COUNT 4.37 M/uL (4.7-6.1); WHITE BLOOD COUNT 8.56 K/uL (4.8-10.8)
[2016-08-30 06:40] LABS: BUN/CREATININE RATIO 12.1 (10-20); CALCIUM 8.8 mg/dl (8.5-10.1); MAGNESIUM 2.3 mg/dl (1.8-2.4); POTASSIUM 4.1 mmol/L (3.5-5.1)
--- NOTE | 2016-08-30 07:36 | Hospitalist Progress Note ---
Hospitalist Progress Note Date of Service Aug 30, 2016. (Maddy Morley PA-C) Subjective Pt evaluation today including: conversation w/ patient, conversation w/ family , physical exam, chart review, lab review, review of studies, review of inpatient medication list Pain: Mild groin pain PO Intake: NPO Voiding: no voiding problems The patient was seen and examined this morning. Pt reports sleeping well overnight. He has mild to moderate groin pain currently but he is handling it fine. He denies any other complaints and is anticipating surgery today. OR has the pt on the board as an add on surgery, likely wont' happen until early afternoon - I discussed this with the patient and his at bedside. All Other Systems: Reviewed and Negative (other than noted in HPI) (Maddy Morley, FARIBA) Objective Vital Signs Date Time Temp Pulse Resp B/P Pulse Ox O2 Delivery O2 Flow Rate FiO2 08/30/16 04:00 98 Room Air 08/30/16 03:52 36.8 50 20 111/70 98 Room Air 08/30/16 00:00 96 Room Air 08/29/16 23:17 37.1 62 18 139/91 96 Room Air 08/29/16 20:00 37.1 69 169/90 98 Room Air 08/29/16 20:00 98 Room Air 08/29/16 16:00 97 Room Air 08/29/16 15:02 36.7 68 19 160/101 97 Room Air 08/29/16 12:42 96 Room Air 08/29/16 11:36 36.6 61 16 128/85 96 Room Air 08/29/16 07:48 Room Air (Maddy Morley PA-C) Physical Exam General Appearance: WD/WN, no apparent distress Eyes: PERRL, EOMI ENT: hearing grossly normal, pharynx normal Neck: supple, no JVD Respiratory/Chest: lungs clear, normal breath sounds, no respiratory distress, no accessory muscle use Cardiovascular: regular rate, rhythm, no murmur Abdomen: normal bowel sounds, non tender, soft Extremities: non-tender, no pedal edema, no calf tenderness Neurologic/Psychiatric: alert, normal mood/affect, oriented x 3 Skin: normal color, warm/dry Notes: Male : Right sided inguinal hernia, + edema right sided suprapubic region. No scrotal swelling. NTTP (Maddy Morley PA-C) Laboratory Results Last 24 Hours Test 08/30/16 05:43 White Blood Count 8.56 K/uL Red Blood Count 4.37 M/uL Hemoglobin 14.9 g/dL Hematocrit 43.8 % Mean Corpuscular Volume 100.2 fL Mean Corpuscular Hemoglobin 34.1 pg Mean Corpuscular Hemoglobin Concent 34.0 g/dl Platelet Count 178 K/uL Mean Platelet Volume 8.6 fL Neutrophils (%) (Auto) 57.8 % Lymphocytes (%) (Auto) 27.7 % Monocytes (%) (Auto) 12.1 % Eosinophils (%) (Auto) 1.6 % Basophils (%) (Auto) 0.4 % Neutrophils # (Auto) 4.95 K/uL Lymphocytes # (Auto) 2.37 K/uL Monocytes # (Auto) 1.04 K/uL Eosinophils # (Auto) 0.14 K/uL Basophils # (Auto) 0.03 K/uL RDW Standard Deviation 44.9 fL RDW Coefficient of Variation 12.2 % Immature Granulocyte % (Auto) 0.4 % Immature Granulocyte # (Auto) 0.03 K/uL Sodium Level 143 mmol/L Potassium Level 4.1 mmol/L Chloride Level 109 mmol/L Carbon Dioxide Level 26 mmol/L Anion Gap 8.0 mmol/L Blood Urea Nitrogen 12 mg/dl Creatinine 1.00 mg/dl Est Creatinine Clear Calc Drug Dose 98.4 ml/min Estimated GFR () 103.4 Estimated GFR (Non- 89.2 BUN/Creatinine Ratio 12.1 Random Glucose 89 mg/dl Calcium Level 8.8 mg/dl Magnesium Level 2.3 mg/dl (Maddy Morley PA-C) Assessment and Plan 45 yo M admitted for groin pain with PMHx of tobacco abuse disorder, shortness of breath. The patient required cardiac clearance prior to surgical intervention for right inguinal hernia. Right inguinal hernia - Surgery consulted: Dr. Tacho Esqueda from surgery- greatly appreciate surgical coordination for scheduling the pt today, likely early afternoon. - cleared by cardiology standpoint. - Pt previously had stress test completed December 03, 2013 which was negative with 91 % MPHR and EKG, no valvular abnormalities, no exercise induced chest pain performed by Dr. Gates. - CT abd/pelvis 08/28/16: Impression: 1. Fat-containing right inguinal hernia with a small associated focus of fat necrosis and/or surrounding inflammatory change. 2. Small right associated scrotal hydrocele. 3. No evidence for bowel containment. 4. Scattered colonic diverticulosis with no evidence for diverticulitis. 5. 3.5 cm right renal cyst. 6. Normal appendix - Maintenance fluids decreased to 75mL/hr with echo results. Shortness of breath Tobacco Abuse Disorder - Echo completed 08/29- results were discussed with the patient and his at bedside. * The left ventricle is normal in size. * There is normal left ventricular wall thickness. * Ejection Fraction = 60-65%. * Left ventricular systolic function is normal. * Flattened septum is consistent with RV volume overload. * The right ventricle is mildly dilated. * Trace pulmonic valvular regurgitation. * Pulmonary end diastolic Doppler velocity of 0.8 m/s is consistent with normal pulmonary artery end diastolic pressure. - Trop trended and negative. - Pt reports shortness of breath seems to be related to anxiety. In stressful situations the patient feels chest tightness but reports it resolves in a short amount of time, he denies ever experiencing acute sharp pain, radiating pain, or pressure, no associated n/v. He has good functional status with exercise and active lifestyle. - Since 2013 when he was worked up for chest tightness with an exercise stress test he was asked to get formal PFTs. He switched to the [facility] for medical care, and this was never done. He decreased the amount of smoking at that time from 8- 9 cigs daily to now only 2 per day. - Will need formal PFTs scheduled as oupt - Smoking cessation encouraged - Duonebs available Hypertension - was given meds on 08/29, but will hold lisinopril 10 mg by mouth daily and HCTZ 25 mg by mouth daily today prior to surgery. DVT ppx: SCDs, OOB. CODE STATUS: FULL CODE Disposition: From home, will need follow up with formal PFTs and 1 week f/u with provider at the [facility] at time of discharge, possible discharge later today if doing well and not too late. (Maddy Morley, FARIBA) Reviewed: Pt Seen/Exam by Me, HO Notes, Labs (Rosalie Art MD) History Agree with PA's HPI/ROS as above. Pt denies CP or SOb, feeling good, had a BM this AM, is NPO, no N/V. Still with right groin pain but manageable (Rosalie Art MD) All Other Systems: Reviewed and Negative (Rosalie Art MD) General Appearance: WD/WN, no apparent distress Eye Exam: bilateral eye normal inspection Ears, Nose, Throat: hearing grossly normal Neck: trachea midline Respiratory: lungs clear, normal breath sounds, no respiratory distress, no accessory muscle use Cardiovascular: regular rate, rhythm, no edema, no gallop, no murmur Gastrointestinal: normal bowel sounds, non tender, soft, hernia (RIH) Extremities: non-tender, normal inspection, no pedal edema, no calf tenderness Neurologic/Psychiatric: alert, normal mood/affect, oriented x 3 Skin Characteristics: normal color, warm/dry (Rosalie Art MD) Assessment/Plan Agree with PA A/P as above with the following exceptions/additions: RIH-with fat necrosis--> plan for RIH repair today with Dr. Esqueda. He is able to achieve at least 4 METS, has normal ECGs here, normal stress and resting ECHO 2013. His chest symptoms are atypical and could be related to GI issues or stress/anxiety. His NUGENT is most likely related to his smoking history. -recommend formal PFTs as above as outpt -Strongly encouraged smoking cessation -He is at average CV risk for this intermediate risk surgery and therefore should proceed with surgery as planned without further testing or intervention. -pain control -Surgical management by Surgery greatly appreciated -expect d/c to home later today after recovery if not too late in the day, otherwise, tomorrow AM Proph-SCDs, no anticoagulants due to upcoming surgery (Rosalie Art MD)
[2016-08-30] MEDS: NSS + 20MEQ KCL 1000ML 1,000 ML IV SCH ×2 (08:28→23:54)
[2016-08-30] MEDS ORDERED: LISINOPRIL 10 MG TAB PO SCH (09:00)
[2016-08-30] MEDS ORDERED: HYDROCHLOROTHIAZIDE 25 MG TAB PO SCH (09:00)
--- NOTE | 2016-08-30 10:01 | Surgery Progress Note ---
Surgery Progress Note Date of Service Aug 30, 2016. Subjective Post OP Day: HD # 2 + ambulating, + feeling well, + pain controlled, No chest pain, No nausea, No vomiting Objective Vital Signs: Date Time Temp Pulse Resp B/P Pulse Ox O2 Delivery O2 Flow Rate FiO2 08/30/16 08:53 36.8 50 18 98 08/30/16 08:00 100 Room Air 08/30/16 07:54 36.7 64 20 136/88 97 Room Air 08/30/16 04:00 98 Room Air 08/30/16 03:52 36.8 50 20 111/70 98 Room Air 08/30/16 00:00 96 Room Air 08/29/16 23:17 37.1 62 18 139/91 96 Room Air 08/29/16 20:00 37.1 69 169/90 98 Room Air 08/29/16 20:00 98 Room Air 08/29/16 16:00 97 Room Air 08/29/16 15:02 36.7 68 19 160/101 97 Room Air 08/29/16 12:42 96 Room Air 08/29/16 11:36 36.6 61 16 128/85 96 Room Air General Appearance: WD/WN, no apparent distress Head: normocephalic, atraumatic Neck: supple Abdomen: non tender, non distended, soft, + hernia (Right inguinal hernia, bulge present, slightly tender on palpation, no scrotal edema) Extremities: normal range of motion Laboratory Results: Results Past 24 Hours Test 08/30/16 05:43 Range/Units White Blood Count 8.56 4.8-10.8 K/uL Red Blood Count 4.37 4.7-6.1 M/uL Hemoglobin 14.9 14.0-18.0 g/dL Hematocrit 43.8 42-52 % Mean Corpuscular Volume 100.2 80-100 fL Mean Corpuscular Hemoglobin 34.1 25-34 pg Mean Corpuscular Hemoglobin Concent 34.0 32-36 g/dl Platelet Count 178 130-400 K/uL Mean Platelet Volume 8.6 7.4-10.4 fL Neutrophils (%) (Auto) 57.8 % Lymphocytes (%) (Auto) 27.7 % Monocytes (%) (Auto) 12.1 % Eosinophils (%) (Auto) 1.6 % Basophils (%) (Auto) 0.4 % Neutrophils # (Auto) 4.95 1.4-6.5 K/uL Lymphocytes # (Auto) 2.37 1.2-3.4 K/uL Monocytes # (Auto) 1.04 0.11-0.59 K/uL Eosinophils # (Auto) 0.14 0-0.5 K/uL Basophils # (Auto) 0.03 0-0.2 K/uL RDW Standard Deviation 44.9 36.4-46.3 fL RDW Coefficient of Variation 12.2 11.5-14.5 % Immature Granulocyte % (Auto) 0.4 % Immature Granulocyte # (Auto) 0.03 0.00-0.02 K/uL Sodium Level 143 136-145 mmol/L Potassium Level 4.1 3.5-5.1 mmol/L Chloride Level 109 98-107 mmol/L Carbon Dioxide Level 26 21-32 mmol/L Anion Gap 8.0 3-11 mmol/L Blood Urea Nitrogen 12 7-18 mg/dl Creatinine 1.00 0.60-1.40 mg/dl Est Creatinine Clear Calc Drug Dose 98.4 ml/min Estimated GFR () 103.4 Estimated GFR (Non- 89.2 BUN/Creatinine Ratio 12.1 10-20 Random Glucose 89 70-99 mg/dl Calcium Level 8.8 8.5-10.1 mg/dl Magnesium Level 2.3 1.8-2.4 mg/dl Assessment & Plan Plan for open right inguinal hernia repair with mesh today Patient was cleared by cardiology for surgery Informed patient of procedure and risks, informed consent obtained continue NPO status continue current treatment established by hospitalist. Dr. Esqueda has seen and examined patient. Agrees with above stated findings and treatment plan.
[2016-08-30] MEDS ORDERED: FENTANYL CITRATE INJ 50 MCG/1 ML 2 ML VIAL ONE ×2 (15:21→16:02)
[2016-08-30] MEDS ORDERED: DEXAMETHASONE SOD INJ 4 MG/ML VIAL ONE (15:21)
[2016-08-30] MEDS ORDERED: PROPOFOL IV EMULSION 10 MG/ML 20 ML VIAL IV ONE (15:21)
[2016-08-30] MEDS ORDERED: LIDOCAINE HCL 2% 2 ML VIAL (20MG/ML) ONE (15:21)
[2016-08-30] MEDS ORDERED: MIDAZOLAM HCL 1 MG/ML 2ML VIAL ONE (15:21)
[2016-08-30] MEDS ORDERED: ONDANSETRON INJ 2 MG/ML 2 ML VIAL ONE (15:21)
[2016-08-30] MEDS ORDERED: PHENYLEPHRINE 100MCG/ML 5ML SYR IV PRN (15:30)
[2016-08-30] MEDS ORDERED: ONDANSETRON INJ 2 MG/ML 2 ML VIAL IV PRN (15:30)
[2016-08-30] MEDS ORDERED: EpHEDrine SULFATE INJ 50 MG/ML AMP IV PRN (15:30)
[2016-08-30] MEDS ORDERED: ATROPINE SULFATE 0.1 MG/ML 5ML SYR IV PRN (15:30)
[2016-08-30] MEDS ORDERED: CEFAZOLIN IV 2,000 MG/60 ML D5W IV ONE (15:32)
[2016-08-30] MEDS ORDERED: NURSING VERBAL MED ORDER ONE (15:45)
[2016-08-30] MEDS ORDERED: BUPIVACAINE 0.5 % 5 MG/1 ML MPF 30ML VIAL INJ ONE (17:22)
[2016-08-30] MEDS: HYDROmorphone INJ 2 MG/ML SYR/VIAL IV PRN ×3 (17:45→17:55)
[2016-08-30] MEDS ORDERED: MoRPHine SULFATE 4 MG/ML 1 ML CARP\\VIAL IV PRN (18:00)
[2016-08-30] MEDS ORDERED: OXYCODONE/ACETAMINOPHEN 5-325 TAB PO PRN (18:00)
--- NOTE | 2016-08-30 18:02 | [facility] Post Operative Brief Note ---
Immediate Operative Summary Operative Date Aug 30, 2016. Pre-Operative Diagnosis Right inguinal hernia Post-Operative Diagnosis Right Inguinal Hernia Procedure(s) Performed Right Open Inguinal Hernia Repair with Mesh Surgeon Dr. Esqueda [employer] Surgeon(s) Mary Brown PA-C Estimated Blood Loss 10 cc Findings See dictation Specimens A: Incarcerated fat from indirect inguinal hernia + hernia sack B: Lipoma of the cord Drains None Anesthesia General Complication(s) None Disposition Recovery Room / PACU
--- NOTE | 2016-08-30 18:53 | Anesthesiology Progress Note ---
Anesthesia Post Op Note Date & Time Aug 30, 2016 at 18:52 Vital Signs Pain Intensity: 4 Vital Signs Past 12 Hours Date Time Temp Pulse Resp B/P Pulse Ox O2 Delivery O2 Flow Rate FiO2 08/30/16 18:15 36.8 75 16 136/87 99 Nasal Cannula 2 Mask 08/30/16 18:05 80 16 147/92 99 Nasal Cannula 2 Mask 08/30/16 17:55 77 16 156/86 99 Mask 10 08/30/16 17:45 76 16 132/83 96 Mask 10 08/30/16 17:38 36.3 76 16 124/78 99 Mask 10 08/30/16 11:15 36.9 65 18 127/80 99 Room Air 08/30/16 08:53 36.8 50 18 98 08/30/16 08:00 100 Room Air 08/30/16 07:54 36.7 64 20 136/88 97 Room Air Notes Mental Status: alert / awake / arousable, participated in evaluation Pt Amnestic to Procedure: Yes Nausea / Vomiting: adequately controlled Pain: adequately controlled Airway Patency, RR, SpO2: stable & adequate BP & HR: stable & adequate Hydration State: stable & adequate Anesthetic Complications: no major complications apparent
--- NOTE | 2016-08-31 01:22 | OPERATIVE REPORT ---
DATE OF OPERATION: 08/30/2016 PREOPERATIVE DIAGNOSIS: Right inguinal hernia with incarcerated fat. POSTOPERATIVE DIAGNOSIS: Right indirect inguinal hernia with incarcerated fat. PROCEDURE: Reduction and repair of right indirect inguinal hernia. SURGEON: Dr. Esqueda. CRANE HOOKER: Yanira Brown PA-C. FINDINGS: The patient had an indirect hernia. The sac was thickened except for the 1 or 2 cm just outside the internal ring. There was intraabdominal fat within the hernia. There was no bowel within the hernia. The distal 3-4 cm of fat appeared dark and necrotic. There was no direct component. The cord structures were normal but they were densely adherent to the thickened sac and draped over the top of it. TECHNIQUE: The patient was given a general anesthetic, and the area was prepped and draped in usual sterile fashion. Right inguinal incision was made, carried down through the subcutaneous tissue. There were bridging veins that were doubly clamped, divided and ligated using 3-0 Vicryl ties. Further dissection was carried posteriorly to the external oblique fascia and the external ring was identified. A small incision was made in the external oblique, the underlying structures were after its undersurface, and it was opened through the external ring. It was opened superolaterally as well. I then the sac and cord structures away from the mendez of the canal, establishing the inguinal ligament. I then was able to reduce the hernia out toward the incision by dividing some of the cremasteric fibers. That established the distal portion of the cord structures beyond the hernia sac. There was a lot of edema surrounding those tissues and that allowed me then to establish a plane behind the cord structures and isolate them with a [place] drain. The dissection of the cord structures then worked proximally. They were draped over the hernia sac and densely adherent. I was eventually able to establish a plane between the cord structures and the hernia sac and them up to the internal ring. There was a lipoma of the cord that was rather large. This was away from the cord structures and away from the hernia sac and sequentially clamped and divided and ligated with 3-0 Vicryl ties, that was placed back in its anatomic position. It was clear that the hernia sac was of normal caliber and size just as it exited the internal ring. I opened the sac there and then was able to insert my finger into the sac and worked distally any tissue and opening the hernia sac. That allowed me then to free all of the fat within it. Because it was necrotic, I clamped the fat sequentially at the base, just outside the internal ring, and divided it and ligated it with 3-0 Vicryl ties and placed it back into its anatomic position. I then amputated the redundant sac and closed the peritoneum using a running 2-0 Vicryl, placed that back into its anatomic position. That then allowed me to further establish the floor of the canal. The internal ring despite the fat incarceration and lipoma only admitted the tip of my finger. Then, the cord structures were further dissected up to the internal ring establishing the floor. A piece of preformed inguinal hernia mesh was placed in the floor of the canal and sewn to the anterior surface of the internal oblique medially, to the tissue over the pubic bone inferiorly, and to the shelving border of the inguinal ligament laterally. The legs were approximated to each other to create a new internal ring. The cord structures were placed back into their anatomic position and the external oblique was closed over them using a running 2-0 Vicryl. Deep subcutaneous tissue was closed with running 2-0 Vicryl, superficial subcutaneous tissue was closed with running 3-0 Vicryl, and the skin was closed with 4-0 Monocryl in a running subcuticular fashion. The skin was cleansed, dried, benzoin placed. Steri-Strips applied. Estimated blood loss was 10 mL. Sponge, needle and instrument counts were correct prior to closure. The patient tolerated the surgical procedure without complication and was transferred to recovery. I attest to the content of the Intraoperative Record and any orders documented therein. Any exceptio ns are noted below.
[2016-08-31 03:36] VITALS: BP 119/75; PULSE 71; TEMP 36.9; O2SAT 98
[2016-08-31 06:59] VITALS: BP 117/69; PULSE 55; TEMP 37.2; O2SAT 99
--- NOTE | 2016-08-31 07:34 | Surgery Progress Note ---
Surgery Progress Note Date of Service Aug 31, 2016. Subjective Post OP Day: 1 + feeling well, + pain controlled (Incisional only), No nausea, No vomiting Objective Vital Signs: Date Time Temp Pulse Resp B/P Pulse Ox O2 Delivery O2 Flow Rate FiO2 08/31/16 03:36 36.9 71 16 119/75 98 Room Air 08/30/16 23:55 Room Air 08/30/16 23:42 37.3 76 16 133/73 95 Room Air 08/30/16 21:39 37.6 93 18 138/86 96 Room Air 08/30/16 20:56 96 Nasal Cannula 1.0 08/30/16 20:51 96 Nasal Cannula 1.0 08/30/16 20:33 37.0 89 18 155/85 92 Room Air 08/30/16 18:56 37.3 75 18 154/88 97 Nasal Cannula 1.0 08/30/16 18:37 36.9 77 16 154/88 96 Nasal Cannula 1.0 08/30/16 18:15 36.8 75 16 136/87 99 Nasal Cannula 2 Mask 08/30/16 18:05 80 16 147/92 99 Nasal Cannula 2 Mask 08/30/16 17:55 77 16 156/86 99 Mask 10 08/30/16 17:45 76 16 132/83 96 Mask 10 08/30/16 17:38 36.3 76 16 124/78 99 Mask 10 08/30/16 11:15 36.9 65 18 127/80 99 Room Air 08/30/16 08:53 36.8 50 18 98 08/30/16 08:00 100 Room Air 08/30/16 07:54 36.7 64 20 136/88 97 Room Air Abdomen: normal bowel sounds, non distended, soft, + tenderness (incisional only) Assessment & Plan S/P repair of incarcerated (fat) right inguinal hernia Doing well Suspect can go home later today if tolerates breakfast Discussed activity restrictions
--- NOTE | 2016-08-31 07:37 | Discharge Instructions ---
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 Instructions / Follow-Up Instructions / Follow-Up ACTIVITY RECOMMENDATIONS: * Walk as much as possible. * No heavy lifting (>10 lbs.) for 6 weeks. SPECIAL CARE INSTRUCTIONS: * May shower in 24 hours. Let water run over area and pat dry. * Leave steri strips on for one week. * Call the surgeon's office with any questions or concerns - (ex. temperature higher than 101 degrees F, excessive bleeding or pain). MEDICATIONS: Resume previous medications unless instructed otherwise by your surgeon. * Ibuprofen 600 mg every 6 hours with food * Percocet 1 every 4 hours, as needed for pain FOLLOW UP VISIT: If not already scheduled, please call the office to schedule a two week follow- up appointment. Office number Current Hospital Diet Patient's current hospital diet: AHA Diet (Heart Healthy) Discharge Diet Recommended Diet: Regular Diet Procedures Procedures Performed: Right Open Inguinal Hernia Repair with Mesh Pending Studies Studies pending at discharge: no Medical Emergencies . Who to Call and When: Medical Emergencies: If at any time you feel your situation is an emergency, please call 911 immediately. . Non-Emergent Contact Non-Emergency issues call your: Primary Care Provider, Surgeon Call Non-Emergent contact if: your pain is worsening, wound has increased redness, wound has increased pain . "Provider Documentation" section prepared by Tacho Esqueda. VTE Core Measure Inpt VTE Proph given/why not?: SCD's, Treatment not indicated
--- NOTE | 2016-08-31 08:23 | Anesthesiology Progress Note ---
Anesthesia Post Op Note Date & Time Aug 31, 2016 at 08:23 Vital Signs Pain Intensity: 7.0 Vital Signs Past 12 Hours Date Time Temp Pulse Resp B/P Pulse Ox O2 Delivery O2 Flow Rate FiO2 08/31/16 06:59 37.2 55 16 117/69 99 Room Air 08/31/16 03:36 36.9 71 16 119/75 98 Room Air 08/30/16 23:55 Room Air 08/30/16 23:42 37.3 76 16 133/73 95 Room Air 08/30/16 21:39 37.6 93 18 138/86 96 Room Air 08/30/16 20:56 96 Nasal Cannula 1.0 08/30/16 20:51 96 Nasal Cannula 1.0 08/30/16 20:33 37.0 89 18 155/85 92 Room Air Notes Mental Status: alert / awake / arousable, participated in evaluation Pt Amnestic to Procedure: Yes Nausea / Vomiting: adequately controlled Pain: adequately controlled Airway Patency, RR, SpO2: stable & adequate BP & HR: stable & adequate Hydration State: stable & adequate Anesthetic Complications: no major complications apparent
--- NOTE | 2016-08-31 09:18 | Discharge Instructions ---
Discharge Instructions Admission Reason for Admission: Groin Pain with Right Inguinal Hernia, Dyspnea on Exertion (Maddy Morley PA-C) Discharge Discharge Diagnosis / Problem: Right inguinal hernia (Maddy Morley PA-C) Discharge Goals Goal(s): Decrease discomfort, Improve function (Maddy Morley PA-C) Activity Recommendations Activity Limitations: per Instructions/Follow-up section Lifting Limitations: no more than 10 pounds (for 6 weeks) Exercise/Sports Limitations: until after follow-up appointment May Resume Sexual Activity: after follow-up appointment Shower/Bathe: tomorrow Driving or Machine Use: Do not drive while taking percocet for pain. . (Maddy Morley PA-C) Instructions / Follow-Up Instructions / Follow-Up You were admitted to [facility] with groin pain and diagnosed with right inguinal hernia which required surgical fixation. During your stay here you were treated with intravenous fluids and pain medications. You had a cardiac workup completed prior to surgery for complaints of shortness of breath. An echocardiogram was conducted and was normal, without wall motion or valvular abnormalities. You underwent R inguinal hernia surgery on 08/30/[address] Tacho Esqueda. You may not lift more than 10 lbs for 6 weeks!! Walk as much as possible. Continue taking medications as prescribed. - You have been given a prescription for percocet, take this for severe pain as needed every 4 hours. You can alternate with ibuprofen for pain as well. STOP SMOKING!!! You should have formal pulmonary function tests performed as an outpatient. This needs to be ordered and results reviewed by your PCP at the [facility]. Follow up with your PCP within 1-2 weeks. Follow up with General Surgery within 2 weeks. Please call the office and make an appointment. (Maddy Morley PA-C) Current Hospital Diet Patient's current hospital diet: AHA Diet (Heart Healthy) (Maddy Morley PA-C) Discharge Diet Recommended Diet: AHA Diet (Heart Healthy) (Maddy Morley PA-C) Procedures Procedures Performed: Right Open Inguinal Hernia Repair with Mesh 08/30/13 (Maddy Morley PA-C) Pending Studies Studies pending at discharge: no (Maddy Morley PA-C) Medical Emergencies . Who to Call and When: Medical Emergencies: If at any time you feel your situation is an emergency, please call 911 immediately. . (Maddy Morley PA-C) Non-Emergent Contact Non-Emergency issues call your: Primary Care Provider Call Non-Emergent contact if: you have a fever, your pain is not controlled, your pain is worsening, wound has increased pain, you have any medication questions . (Maddy Morley PA-C) Past History Medical & Surgical History: (1) Right inguinal hernia (2) Hypertension (Maddy Morley PA-C) . "Provider Documentation" section prepared by Kelsy Morley. (Maddy Morley PA-C) VTE Core Measure Inpt VTE Proph given/why not?: SCD's, Treatment not indicated (Maddy Morley PA-C)
--- NOTE | 2016-08-31 09:41 | Discharge Summary ---
Discharge Summary Admission Date: Aug 28, 2016 at 17:49 Discharge Date: Aug 31, 2016 Discharge Disposition: Home Principal Diagnosis: Right inguinal hernia, s/p surgical repair Problems/Secondary Diagnoses: Chronic Tobacco Use, HTN Immunizations: Have You Had Influenza Vaccine: No History of Tetanus Vaccine?: Yes Tetanus Immunization Date: Jul 29, 2005 History of Pneumococcal: No History of Hepatitis B Vaccine: Unknown Procedures: ABDOMEN AND PELVIS CT WITH IV CONTRAST CT DOSE: 960.50 mGycm HISTORY: Hernia. Pain. eval for hernia TECHNIQUE: Multiaxial CT images of the abdomen and pelvis were performed following the use of intravenous contrast. COMPARISON STUDY: None. FINDINGS: Lung bases are clear. Liver spleen and pancreas are unremarkable. Kidneys negative for hydronephrosis. There is a 3.5 cm mid pole right renal cyst. Perinephric spaces are intact. The adrenal glands are within normal limits. There are findings of scattered colonic diverticulosis. The appendix is normal. There is no evidence for acute diverticulitis. There is a fat-containing right inguinal hernia. Mild infiltrative changes of the associated end of surrounding fat. This raises the possibility of a component of mild fat and associated necrosis. There is no evidence of bowel containment. Appears be a small right-sided hydrocele. The anterior abdominal wall appears to be intact. IMPRESSION: 1. Fat-containing right inguinal hernia with a small associated focus of fat necrosis and/or surrounding inflammatory change. 2. Small right associated scrotal hydrocele. 3. No evidence for bowel containment. 4. Scattered colonic diverticulosis with no evidence for diverticulitis. 5. 3.5 cm right renal cyst. 6. Normal appendix Electronically signed by: Tacho Ordoñez M.D. 08/28/2016 12:50 PM Dictated Date/Time: 08/28/2016 12:43 PM The status of this report is Signed. CHEST ONE VIEW PORTABLE CLINICAL HISTORY: PRE-OP COMPARISON STUDY: Preoperative evaluation FINDINGS: The bones soft tissues and hemidiaphragms are normal. The cardiomediastinal silhouette is normal. The lungs are clear. The pulmonary vasculature is normal. Several old right-sided rib fractures. IMPRESSION: Negative chest. Electronically signed by: Tacho Ordoñez M.D. 08/28/2016 3:09 PM Dictated Date/Time: 08/28/2016 3:08 PM The status of this report is Signed. Consultations: General Surgery (Maddy Morley PA-C) Medication Reconciliation Continued Medications: Hydrochlorothiazide (Hctz) 25 Mg Tab 25 MG PO DAILY, TAB Lisinopril (Prinivil) 10 Mg Tab 10 MG PO DAILY, TAB Referrals At Discharge Follow up Referrals: Surgery Referral - Within 2 Weeks with Tacho Esqueda M.D. Discharge Exam The patient was seen and examined this morning. Pt reports feeling well today. Pain is mild and tolerable, worse with leaning forward. He reports groin pain overall is improved. Eating and drinking without difficulty. Passing gas, no bowel movement yet. Denies dysuria. Review of Systems: Constitutional: No chills, No fever Eyes: No problem reported ENT: No problem reported Respiratory: No cough, No dyspnea on exertion, No shortness of breath Cardiovascular: No chest pain, No palpitations Abdomen: No diarrhea, No nausea, No pain, No vomiting Musculoskeletal: No calf pain, No joint pain Genitourinary - Male: No dysuria Neurologic: No numbness/tingling Physical Exam: General Appearance: WD/WN, no apparent distress Eyes: PERRL, EOMI ENT: hearing grossly normal, pharynx normal Neck: supple, no JVD Respiratory/Chest: lungs clear, normal breath sounds, no respiratory distress, no accessory muscle use Cardiovascular: regular rate, rhythm, no murmur Abdomen / GI: normal bowel sounds, non tender, soft, + pertinent finding (R inguinal region with bandage which is c/d/i. Minimal suprapubic edema. No surrounding erythema. NTTP. No scrotal edema) Extremities: normal inspection, no pedal edema Neurologic/Psychiatric: alert, normal mood/affect, oriented x 3 Skin: normal color, warm/dry (Maddy Morley PA-C) Hospital Course H&P Source: patient The patient is a 45-year-old male presents emergency department complaining of constant right groin pain, worse with squatting and kneeling, that began 2 days prior to arrival. He denies any the usual causative or associated factors. He also reports dyspnea on exertion that was initially assessed a few years ago, but has progressed since that time. He did have negative stress test 2 years ago. Date Time Temp Pulse Resp B/P Pulse Ox O2 Delivery O2 Flow Rate FiO2 08/28/16 16:04 72 18 145/97 97 Room Air 08/28/16 13:36 78 20 147/93 100 08/28/16 11:51 37.4 88 16 158/104 99 Room Air The patient is awake, well-developed and adequately nourished, alert and oriented 3, normocephalic and atraumatic, lying in bed and in no acute distress. HEENT--PERRL, EOMI, mucous membranes and oropharynx dry. Neck--supple, no JVD or bruits, thyroid normal, trachea midline, no adenopathy. Heart--normal S1 and S2, no extra beats, no murmurs, rubs or gallops. Lungs--clear bilaterally with good air movement, no respiratory distress, no accessory muscle use. Abdomen--normal bowel sounds and soft, nondistended, tender right inguinal hernia, no organomegaly. Extremities--no cyanosis, clubbing or edema. There are good distal pulses b/l. Dermatologic--normal skin turgor, normal color, warm and dry, no abnormal lymph nodes, no rash. Neurologic--cranial nerves II through XII grossly intact, motor and sensory examination normal. Rheumatologic--normal range of motion, nontender, muscles and joints. Psychiatric--normal affect. Hospital Course 45 yo M admitted for groin pain with PMHx of tobacco abuse disorder, shortness of breath. The patient required cardiac clearance prior to surgical intervention for right inguinal hernia. An echocardiogram was done and normal, without valvular or wall motion abnormalities. Troponins were trended x 3 and are negative. Cardiology cleared the patient for surgery. - Echo completed 08/29- results were discussed with the patient and his at bedside. * The left ventricle is normal in size. * There is normal left ventricular wall thickness. * Ejection Fraction = 60-65%. * Left ventricular systolic function is normal. * Flattened septum is consistent with RV volume overload. * The right ventricle is mildly dilated. * Trace pulmonic valvular regurgitation. * Pulmonary end diastolic Doppler velocity of 0.8 m/s is consistent with normal pulmonary artery end diastolic pressure. The pt underwent right inguinal hernia surgical fixation with mesh repair on 08/30/[address] Esqueda. Pt tolerated the procedure well. Initial CT abd/pelvis 08/28/16: Impression: 1. Fat-containing right inguinal hernia with a small associated focus of fat necrosis and/or surrounding inflammatory change. 2. Small right associated scrotal hydrocele. 3. No evidence for bowel containment. 4. Scattered colonic diverticulosis with no evidence for diverticulitis. 5. 3.5 cm right renal cyst. 6. Normal appendix Shortness of breath Tobacco Abuse Disorder - Pt reports shortness of breath seems to be related to anxiety. In stressful situations the patient feels chest tightness but reports it resolves in a short amount of time, he denies ever experiencing acute sharp pain, radiating pain, or pressure, no associated n/v. He has good functional status with exercise and active lifestyle. - Since 2013 when he was worked up for chest tightness with an exercise stress test he was asked to get formal PFTs. He switched to [facility] for medical care, and this was never done. He decreased the amount of smoking at that time from 8- 9 cigs daily to now only 2 per day. - Will need formal PFTs scheduled as oupt - can be ordered by PCP at the [facility] - Smoking cessation encouraged - Duonebs available Hypertension - Resume lisinopril 10 mg by mouth daily and HCTZ 25 mg by mouth daily today prior to surgery. DVT ppx: SCDs, OOB. CODE STATUS: FULL CODE Disposition: From home, will need follow up with formal PFTs and 1 week f/u with provider at the [facility] at time of discharge. Total Time Spent: Greater than 30 minutes This includes examination of the patient, discharge planning, medication reconciliation, and communication with other providers. (Maddy Morley PA-C) Discharge Instructions Please refer to the electronic Patient Visit Report (Discharge Instructions) for additional information. (Maddy Morley PA-C) Follow-Up Follow up with your Primary Care Provider within 1 week. Follow up with General Surgery within 2 weeks. (Maddy Morley PA-C) Reviewed: Pt Seen/Exam by Me, HO Notes, Labs (Rosalie Art MD) History PA Physician Supervision Note: I interviewed and examined the patient. Discussed with the PA and agree with findings and plan as documented in the note. Any exceptions or clarifications are listed here: Pt doing very well, some pain in rt inguinal region but not like previous. Eating and no N/V, is passing flatus.No CP/SOB, is committed to completely quitting smoking. Vitals reviewed, NAD, AAOx3 RRR no mgr nl S1S2 CTAB no wcr Abd soft, minimal TTP in RLQ and rt inguinal region without guarding, dressing c /d/i Ext no edema, no calf tenderness A/P: 45 yo male with incarcerated RIH now s/p repair. Post-op care with pain meds, activity restrictions, f/u SUrgery 2 weeks. SOB-could be related to smoking, COPD, needs formal PFTs CP-stress related, ECHO normal, no stress testing indicated as per Cardiology D/c to home in good condition. Documented By: Rosalie Art (Rosalie Art MD) Assessment/Plan Agree with PA A/P as above with the following exceptions/additions: RIH-with fat necrosis--> plan for RIH repair today with Dr. Esqueda. He is able to achieve at least 4 METS, has normal ECGs here, normal stress and resting ECHO 2013. His chest symptoms are atypical and could be related to GI issues or stress/anxiety. His NUGENT is most likely related to his smoking history. -recommend formal PFTs as above as outpt -Strongly encouraged smoking cessation -He is at average CV risk for this intermediate risk surgery and therefore should proceed with surgery as planned without further testing or intervention. -pain control -Surgical management by Surgery greatly appreciated -expect d/c to home later today after recovery if not too late in the day, otherwise, tomorrow AM Proph-SCDs, no anticoagulants due to upcoming surgery (Rosalie Art MD)
[2016-08-31 11:07] VITALS: BP 127/79; PULSE 85; TEMP 36.7; O2SAT 98
[2016-08-31 12:55] VITALS: BP 127/79; PULSE 85; TEMP 36.7; O2SAT 98
== END 2016-08-31 13:25 | disposition home or self-care (01) | DRG 352 ==
LOC: ENRESERVDT → ENRESERVTM → C.EDB 11:37 → C.2T 17:49 → C.MSW 08-30 11:19
PROVIDERS: ADMIT Hospitalist; ATTEND Hospitalist
PROC: 0YU50JZ Supplement Right Inguinal Region with Synthetic Substitute, Open Approach (ICD-10-PCS; principal; 2016-08-30 11:00)
DX: K40.30 Unilateral inguinal hernia, with obstruction, without gangrene, not specified as recurrent (principal); I10 Essential (primary) hypertension; Z83.3 Family history of diabetes mellitus; Z82.49 Family history of ischemic heart disease and other diseases of the circulatory system; Z80.9 Family history of malignant neoplasm, unspecified; F17.210 Nicotine dependence, cigarettes, uncomplicated; Z79.899 Other long term (current) drug therapy; E78.00 Pure hypercholesterolemia, unspecified; N43.3 Hydrocele, unspecified; K57.30 Diverticulosis of large intestine without perforation or abscess without bleeding; N28.1 Cyst of kidney, acquired; F41.9 Anxiety disorder, unspecified; J45.909 Unspecified asthma, uncomplicated